=== PATIENT | female | born 1940 | race Caucasian/White ===

== ENCOUNTER 2016-10-17 07:53 | Day surgery (SDC) | payer MEDICARE ==
[2016-10-17] MEDS ORDERED: LACTATED RINGERS 1,000 ML IV ONE ×2 (08:03)
[2016-10-17] MEDS ORDERED: MIDAZOLAM 2 MG/2 ML VIAL IVP ONE (09:20)
[2016-10-17] MEDS ORDERED: fentaNYL 100 MCG/2 ML VIAL IVP ONE (09:20)
--- NOTE | 2016-10-17 10:28 | PROCEDURE REPORT ---
DATE OF PROCEDURE: 10/17/2016 00:00:00 PROCEDURE: Colonoscopy. ENDOSCOPIST: Juan F Russ MD. PRIMARY CARE: Carolyn Suresh MD. INDICATION: History of colon polyps. PREMEDICATION: Fentanyl 100 mcg, Versed 3 mg IV titration. TOTAL SEDATION TIME: 40 minutes. After informed consent was obtained, the patient was placed in the left lateral decubitus position. T he video colonoscope was introduced into the rectum and slowly advanced to the cecum. Preparation was good. On slow withdrawal, the mucosa was carefully examined. The scope was removed. The patient tole rated the procedure well. BLOOD LOSS: Minimal. COMPLICATIONS: None. FINDINGS 1. Moderate sigmoid diverticulosis. 2. A 5 mm polyp at the hepatic flexure, cold snare to remove. 3. A 10 mm very flat polyp with a mucus cap at the hepatic flexure, 10-12 mm in size. This was taken off by endoscopic mucosal resection. The limits were identified. It was injected with 1 mL of saline and using a hot snare, removed completely. 4. A 12 mm pedunculated polyp in the mid transverse colon, hot snare removed. 5. A 10 mm pedunculated polyp in the transverse colon. This was hot snared, though cautery was incomp lete and there was minimal bleeding from the stalk. The stalk was grabbed again with the snare, caute rized, but not cut through and through. Bleeding was controlled. This polyp was placed in the same faustina ttle as the transverse colon bottle. ASSESSMENT 1. Two polyps at hepatic flexure removed as above. 2. Two transverse colon polyps placed in the same bottle removed as above. We will follow up with pathology, but given the size and number of the polyps, she probably should solano ve 1 additional colonoscopy in 3 years. JOB #: [id number] EXT JOB #:[id number]
[2016-10-17 12:48] VITALS: BP 121/63
== END 2016-10-17 07:54 | disposition home or self-care (01) ==
LOC: SDS 07:53
PROVIDERS: ATTEND Internal Medicine Gastroenterology
PROC: 0DBL8ZX Excision of Transverse Colon, Via Natural or Artificial Opening Endoscopic, Diagnostic (ICD-10-PCS; 2016-10-17)
PROC: 0DBK8ZX Excision of Ascending Colon, Via Natural or Artificial Opening Endoscopic, Diagnostic (ICD-10-PCS; principal; 2016-10-17 09:00)
DX: K63.5 Polyp of colon (principal); D12.3 Benign neoplasm of transverse colon; K57.30 Diverticulosis of large intestine without perforation or abscess without bleeding; J45.909 Unspecified asthma, uncomplicated; Z88.0 Allergy status to penicillin; Z88.2 Allergy status to sulfonamides
CPT/HCPCS: 45385; J7120

== ENCOUNTER 2016-10-22 11:38 | Outpatient (CLI) | payer MEDICARE ==
--- NOTE | 2016-10-23 16:52 | Mammography Report ---
DIGITAL SCREENING MAMMOGRAM: 10/22/2016 CLINICAL INDICATION: A 76-year-old nulliparous patient with family history of breast cancer, history of benign left breast biopsy for screening. COMPARISON: 10/2015, 09/2014, 11/2012, 11/2011, 11/2010, 10/2009 TECHNIQUE: Routine CC and MLO projections were obtained of the breasts. FINDINGS: The breasts again demonstrate heterogeneously dense fibroglandular parenchyma. Postoperat siddhartha changes in the left breast are stable. Coarse and punctate, typically benign calcifications are present. No suspicious masses, clustered microcalcifications, or regions of architectural distortion are identified. IMPRESSION: BENIGN FINDINGS. RECOMMENDATION: Routine annual screening unless otherwise clinically indicated. BIRADS CATEGORY 2 - BENIGN FINDINGS. STANDARD QUALIFYING STATEMENTS 1. This examination was reviewed with the aid of Computer-Aided Detection (CAD). 2. A negative or benign imaging report should not delay biopsy if clinically suspicious findings are present. Consider surgical consultation if warranted. More than 5% of cancers are not identified by i maging. 3. Dense breasts may obscure an underlying neoplasm. JOB #: [id number] EXT JOB #:[id number]
== END 2016-10-22 11:39 | disposition home or self-care (01) ==
LOC: DI 11:38
PROVIDERS: ATTEND Internal Medicine
DX: Z12.31 Encounter for screening mammogram for malignant neoplasm of breast (principal); Z80.3 Family history of malignant neoplasm of breast
CPT/HCPCS: 77067

== ENCOUNTER 2017-10-23 10:09 | Outpatient (CLI) | payer MEDICARE ==
--- NOTE | 2017-10-24 12:12 | Mammography Report ---
Procedure Date: 10/23/2017 Accession Number: [id number] / [id number] Procedure: MGN - Screening Mammo Dig Bilat CPT Code: FULL RESULT: EXAM: Screening Mammo Dig Bilat DATE: 10/23/2017 10:30 AM CLINICAL HISTORY: 77 year-old nulliparous female with history of left breast surgery with benign pathology and family history of breast cancer in the mother at age 59. TECHNIQUE: Bilateral CC and MLO views were obtained. COMPARISON: 10/22/2016, 11/04/2015, 10/06/2014, 11/18/2012. FINDINGS: The breasts demonstrate heterogeneously dense fibroglandular parenchyma bilaterally. Postsurgical changes in the left breast are again seen. The right breast contains coarse typically benign calcifications. No suspicious masses, clustered microcalcifications, or regions of architectural distortion are identified. IMPRESSION: Benign findings RECOMMENDATION: Routine annual screening unless otherwise clinically indicated. BIRADS CATEGORY 2: Benign findings STANDARD QUALIFYING STATEMENTS: 1. This examination was reviewed with the aid of Computer-Aided Detection (CAD). 2. A negative or benign imaging report should not delay biopsy if clinically suspicious findings are present. Consider surgical consultation if warrented. More than 5% of cancers are not identified by imaging. 3. Dense breasts may obscure an underlying neoplasm.
== END 2017-10-23 10:10 | disposition home or self-care (01) ==
LOC: DI.N 10:09
PROVIDERS: ATTEND Internal Medicine
DX: Z12.31 Encounter for screening mammogram for malignant neoplasm of breast (principal); Z80.3 Family history of malignant neoplasm of breast
CPT/HCPCS: 77067

== ENCOUNTER 2018-11-07 19:24 | Emergency (ER) | payer MEDICARE ==
[2018-11-07 19:57] LABS: BILIRUBIN,URINE NEGATIVE (NEGATIVE); GLUCOSE, URINE (UA) NEGATIVE (NEGATIVE); KETONES,URINE (UA) NEGATIVE (NEGATIVE); LEUKOCYTE ESTERASE, URINE NEGATIVE (NEGATIVE); NITRITE,URINE NEGATIVE (NEGATIVE); OCCULT BLOOD,URINE NEGATIVE (NEGATIVE); PROTEIN,URINE NEGATIVE (NEGATIVE); UROBILINOGEN,URINE 0.2 (NORMAL) E.U./dL (NORMAL)
[2018-11-07 19:58] LABS: CLARITY,URINE CLEAR (CLEAR)
[2018-11-07 19:58] LABS: BASOPHILS % (AUTO) 0.4 %; EOSINOPHILS # (AUTO) 0.2 10^3/uL (0.0-0.7); EOSINOPHILS % (AUTO) 3.5 %; HGB - HEMOGLOBIN 13.8 g/dL (12.0-16.0); LYMPHOCYTES # (AUTO) 1.6 10^3/uL (1.5-3.5); LYMPHOCYTES % (AUTO) 30.2 %; MEAN CORPUSCULAR HEMOGLOBIN 30.9 pg (27.0-31.0); MEAN CORPUSCULAR HGB CONC 31.4 g/dL (32.0-36.0); MEAN CORPUSCULAR VOLUME 98.2 fL (81.0-99.0); MEAN PLATELET VOLUME 10.6 fL (7.9-10.8); MONOCYTES # (AUTO) 0.5 10^3/uL (0.0-1.0); MONOCYTES % (AUTO) 8.7 %; NEUTROPHILS # (AUTO) 3.1 10^3/uL (1.5-6.6); PLT - PLATELET COUNT 180 10^3/uL (130-450); RED BLOOD COUNT 4.47 10^6/uL (4.20-5.40); WHITE BLOOD COUNT 5.4 x10^3/uL (4.8-10.8)
[2018-11-07 20:12] LABS: ALBUMIN/GLOBULIN RATIO 1.6 (1.0-2.2); BILIRUBIN,TOTAL 0.4 mg/dL (0.2-1.0); CALCIUM 9.2 mg/dL (8.5-10.3); CREATININE 0.5 mg/dL (0.4-1.0); TOTAL PROTEIN 6.5 g/dL (6.7-8.2)
--- NOTE | 2018-11-07 21:01 | ED Physician Documentation ---
PD HPI ABD PAIN - Stated complaint Stated Complaint: R SIDE PX - Chief complaint Chief Complaint: Abd Pain - History obtained from History obtained from: Patient - History of Present Illness Timing - onset: Enter time (18:00), Today Timing - details: Abrupt onset Pain level max: 6 Pain level now: 0 Quality: Pain Location: RUQ Improved by: Other (nothing) Worsened by: Other (no exacerbating factors) Associated symptoms: No: Fever, Nausea, Vomiting, Diarrhea, Constipation Similar symptoms before: Has not had sx before - Additional information Additional information: sudden onset RUQ pain when sitting down to eat dinner. pain was severe enough to prompt her to leave and drive to ED although pain then became so intense that she had to loin puller and then let s.o. drive. by the time she got to ED, the symptoms suddenly and completely resolved and she is asymptomatic on this evaluation. no h/o similar symptoms Review of Systems Constitutional: reports: Reviewed and negative Cardiac: reports: Reviewed and negative Respiratory: reports: Reviewed and negative GI: reports: Abdominal Pain. denies: Nausea, Vomiting, Constipation, Diarrhea : denies: Dysuria, Frequency Skin: denies: Rash Musculoskeletal: denies: Back pain PD PAST MEDICAL HISTORY - Past Medical History Past Medical History: Yes Cardiovascular: None Respiratory: Asthma, Pneumonia Endocrine/Autoimmune: None GI: None : None HEENT: None Psych: None Musculoskeletal: Osteoarthritis Derm: None - Past Surgical History Past Surgical History: Yes General: Colonoscopy, Other Ortho: Knee replacement HEENT: Cataracts, Tonsil/Adenoidectomy - Present Medications Home Medications: Ambulatory Orders Medication Instructions Recorded Confirmed Beclomethasone 80 Mcg [Qvar 80] 1 puffs INH BID 09/27/14 10/17/16 Valacyclovir HCl [Valtrex] 500 mg PO ONCE 09/27/14 10/17/16 Triamcinolone Acetonide [Nasacort] 10.8 ml NS BID 11/07/18 11/07/18 - Allergies Allergies/Adverse Reactions: Allergies Allergy/AdvReac Type Severity Reaction Status Date / Time penicillin * [penicillin] Allergy Unknown Verified 09/27/14 12:46 sulfamethoxazole Allergy Unknown Verified 09/27/14 12:46 [From Bactrim] trimethoprim [From Bactrim] Allergy Unknown Verified 09/27/14 12:46 - Social History Does the pt smoke?: No Smoking Status: Never smoker Does the pt drink ETOH?: Yes Does the pt have substance abuse?: No PD ED PE NORMAL - Vitals Vital signs reviewed: Yes - General General: Alert and oriented X 3, No acute distress, Well developed/nourished - Cardiac Cardiac: RRR, No murmur, No gallop, No rub - Respiratory Respiratory: No respiratory distress, Clear bilaterally - Abdomen Abdomen: Normal bowel sounds, Soft, Non tender, Non distended, No organomegaly - Back Back: No CVA TTP - Derm Derm: Normal color, Warm and dry, No rash - Extremities Extremities: No edema Results - Vitals Vitals: Vital Signs - 24 hr 11/07/18 11/07/18 19:27 22:21 Temperature 36.6 C Heart Rate 73 67 Respiratory 14 16 Rate Blood Pressure 141/89 H 143/96 H O2 Saturation 98 98 Oxygen O2 Source Room air - EKG (time done) No standard instances Rate: Rate (enter#) (61) Rhythm: NSR [place]: Normal Intervals: Normal GA QRS: Normal Ischemia: Normal ST segments Computer interpretation: Disagree with computer (no ST elevation) - Labs Labs: Laboratory Tests 11/07/18 11/07/18 11/07/18 19:45 19:54 19:54 WBC 5.4 RBC 4.47 Hgb 13.8 Hct 43.9 MCV 98.2 MCH 30.9 MCHC 31.4 L RDW 13.0 Plt Count 180 MPV 10.6 Neut # (Auto) 3.1 Lymph # (Auto) 1.6 [place] # (Auto) 0.5 Eos # (Auto) 0.2 Baso # (Auto) 0.0 Absolute Nucleated RBC 0.00 Nucleated RBC % 0.0 Sodium 140 Potassium 4.3 Chloride 103 Carbon Dioxide 27 Anion Gap 10.0 BUN 21 H Creatinine 0.5 Estimated GFR (MDRD) 119 Glucose 116 H Calcium 9.2 Total Bilirubin 0.4 AST 23 ALT 19 Alkaline Phosphatase 52 Total Protein 6.5 L Albumin 4.0 Globulin 2.5 Albumin/Globulin Ratio 1.6 Lipase 48 Urine Color YELLOW Urine Clarity CLEAR Urine pH 6.0 Ur Specific [place] 1.015 Urine Protein NEGATIVE Urine Glucose (UA) NEGATIVE Urine Ketones NEGATIVE Urine Occult Blood NEGATIVE Urine Nitrite NEGATIVE Urine Bilirubin NEGATIVE Urine Urobilinogen 0.2 (NORMAL) Ur Leukocyte Esterase NEGATIVE Ur Microscopic Review NOT INDICATED Urine Culture Comments NOT INDICATED - Rads (name of study) CT A/P Radiology: Prelim report reviewed, See rad report PD MEDICAL DECISION MAKING - ED course Complexity details: reviewed results, re-evaluated patient, considered differential, d/w patient, d/w family Departure - Departure Disposition: 01 Home, Self Care Clinical Impression: Abdominal pain Condition: Good Instructions: ED Abdominal Pain Unkn Cause Follow-Up: Carolyn Suresh MD [Primary Care Provider] - Discharge Date/Time: 11/07/18 22:49
[2018-11-07] MEDS ORDERED: IOVERSOL 320 100 ML VIAL IVP ONE ×2 (21:30→21:51)
--- NOTE | 2018-11-07 22:15 | CT Report ---
Reason: abd. pain, possible liver mass on bedside US Procedure Date: 11/07/2018 Accession Number: [id number] / [id number] Procedure: CT - Abdomen/Pelvis W CPT Code: FULL RESULT: EXAM: CT ABDOMEN AND PELVIS EXAM DATE: 11/07/2018 09:46 PM. CLINICAL HISTORY: Abdominal pain, possible liver mass on bedside ultrasound. COMPARISONS: None. TECHNIQUE: Routine helical CT imaging was performed through the abdomen and pelvis. IV contrast: 100 mL OPTI 320. Enteric contrast: No. Reconstructions: Coronal and sagittal. In accordance with CT protocol optimization, one or more of the following dose reduction techniques were utilized for this exam: automated exposure control, adjustment of mA and/or KV based on patient size, or use of iterative reconstructive technique. FINDINGS: Lung Bases: Unremarkable. Liver: There is a unilocular 7 cm right hepatic lobe cyst with mild dilatation of several adjacent bile ducts. No solid or enhancing mass seen. There is a smaller 2 cm simple left hepatic lobe cyst. Gallbladder/Bile Ducts: Unremarkable. Spleen: Normal. Pancreas: Normal. Adrenal Glands: Normal. Kidneys: Normal. No masses or hydronephrosis. Peritoneal Cavity/Bowel: There is an above-average volume of stool throughout the colon. No small bowel obstruction. No free air or fluid collections. No acute mesenteric inflammatory changes. No evidence of appendicitis. Pelvic Organs: Normal. The bladder and visualized pelvic organs are within normal limits. Vasculature: Atherosclerotic aorta. No aneurysms. Bones: Diffuse lumbar spine and bilateral hip degenerative changes. Other: None. IMPRESSION: 1. There is a 7 cm unilocular right hepatic lobe cyst with several adjacent dilated intrahepatic bile ducts. No suspicious, solid or enhancing mass seen. 2. Increased large bowel stool burden suggesting constipation. 3. No acute inflammatory process within the abdomen and pelvis. RADIA
[2018-11-07 22:22] VITALS: BP 143/96
== END 2018-11-07 22:49 | disposition home or self-care (01) ==
LOC: ED 19:24
DX: R10.11 Right upper quadrant pain (principal)
CPT/HCPCS: 36415; 74177; 80053; 81003; 83690; 85025; 93005; 99284; Q9967; 81001; 87086

== ENCOUNTER 2018-12-31 15:41 | Outpatient (CLI) | payer MEDICARE ==
--- NOTE | 2019-01-02 09:32 | Mammography Report ---
Reason: SCREENING MAMMO Procedure Date: 12/31/2018 Accession Number: [id number] / [id number] Procedure: LEONORA - Screening Mammo w/Flip CPT Code: FULL RESULT: EXAM: Screening Mammo w/Flip DATE: 12/31/2018 4:17 PM CLINICAL HISTORY: Screening encounter. History of nulliparity. History of benign excisional left breast biopsy. TECHNIQUE: (B) - Bilateral CC and MLO views were obtained. Left laterally exaggerated CC views obtained. COMPARISON: 10/23/2017 through 11/07/2009. PARENCHYMAL PATTERN: (D) - The breast(s) demonstrate(s) heterogeneously dense fibroglandular parenchyma. FINDINGS: Postsurgical changes in the left breast are stable. There are coarse typically benign calcifications. There are no suspicious masses, calcifications, or areas of distortion. IMPRESSION: Benign findings. BI-RADS category 2. RECOMMENDATION: (ANNUAL) - Recommend routine annual screening mammography. BI-RADS CATEGORY: (2) - Benign Findings. STANDARD QUALIFYING STATEMENTS: 1. This examination was not reviewed with the aid of Computer-Aided Detection (CAD). 2. A negative or benign imaging report should not preclude biopsy if clinically suspicious findings are present. 3. Dense breasts may obscure an underlying neoplasm. 4. This examination was reviewed with the aid of 3D breast imaging (tomosynthesis).
== END 2018-12-31 15:42 | disposition home or self-care (01) ==
LOC: DI 15:41
DX: Z12.31 Encounter for screening mammogram for malignant neoplasm of breast (principal)
CPT/HCPCS: 77063; 77067

== ENCOUNTER 2019-09-13 09:06 | Outpatient (CLI) | payer MEDICARE ==
--- NOTE | 2019-09-13 13:17 | Ultrasound Report ---
PROCEDURE: Abdomen Limited INDICATIONS: LIVER CYSTS TECHNIQUE: Real-time focused scanning was performed of the abdomen, with image documentation. COMPARISON: CT abdomen and pelvis with contrast dated 11/07/2018 FINDINGS: Again noted is a right lobe liver cyst. On the previous CT it measured 7.0 cm. On the curr ent ultrasound and measures 6.4 x 6.1 x 6.1 cm. Also noted is the presence of a left lobe liver cyst which measures 2.6 x 2.1 x 2.4 cm. An additional left lobe liver cyst measures 1.0 cm. No dilated ducts are identified. The common bile duct measures 3 mm. Gallbladder is unremarkable. No stones or gallbladder wall thickening or pain on examination. Visualized portions of the pancreas are unremarkable. No suspicious solid liver masses. IMPRESSION: 1. The right lobe liver cyst appears to be slightly smaller than previously. It is a benign lesion. N o dilated ducts. Reviewed by: Juan Quiñones MD on 09/13/2019 12:15 PM MIKE Approved by: Juan Quiñones MD on 09/13/2019 12:15 PM MIKE Station ID: [id number]
== END 2019-09-13 09:07 | disposition home or self-care (01) ==
LOC: DI 09:06
PROVIDERS: ATTEND Internal Medicine
DX: Q44.6 Cystic disease of liver (principal)
CPT/HCPCS: 76705

== ENCOUNTER 2020-01-08 10:50 | Outpatient (CLI) | payer MEDICARE ==
--- NOTE | 2020-01-11 16:24 | Mammography Report ---
BILATERAL DIGITAL SCREENING MAMMOGRAM 3D/2D: 01/08/2020 CLINICAL: Family history of breast cancer. Routine screening. Comparison is made to exams dated: 12/31/2018 mammogram, 10/23/2017 mammogram, 10/22/2016 mammogram, 10/16 mammogram, 10/06/2014 mammogram, and 11/18/2012 mammogram - [facility]. The ti ssue of both breasts is heterogeneously dense. This may lower the sensitivity of mammography. No significant masses, calcifications, or other findings are seen in either breast. There has been no significant interval change. IMPRESSION: NEGATIVE There is no mammographic evidence of malignancy. A 1 year screening mammogram is recommended. This exam was interpreted at Station ID: [id number]. NOTE: For mammograms, a report in lay terms will be sent to the patient. Approximately 15% of breast malignancies will not be visualized mammographically. In the management of a palpable breast mass, a negative mammogram must not discourage biopsy of a clinically suspicious lesion. Electronically Signed By: Marlene corbett/timoteo:01/08/2020 13:04:28 ACR BI-RADS Category 1: Negative 3341F PARENCHYMAL PATTERN: (D) - The breast(s) demonstrate(s) heterogeneously dense fibroglandular sadi alcantara. BI-RADS CATEGORY: (1) - 1 RECOMMENDATION: (ANNUAL) - Recommend routine annual screening mammography. [id number] 1 year screening LATERALITY: (B)
== END 2020-01-08 10:51 | disposition home or self-care (01) ==
LOC: DI.N 10:50
DX: Z12.31 Encounter for screening mammogram for malignant neoplasm of breast (principal); Z80.3 Family history of malignant neoplasm of breast
CPT/HCPCS: 77063; 77067

== ENCOUNTER 2020-10-11 11:49 | Outpatient (CLI) | payer MEDICARE ==
[2020-10-11 12:20] LABS: BASOPHILS % (AUTO) 0.5 %; EOSINOPHILS # (AUTO) 0.1 10^3/uL (0.0-0.7); EOSINOPHILS % (AUTO) 1.9 %; HGB - HEMOGLOBIN 13.2 g/dL (12.0-16.0); LYMPHOCYTES # (AUTO) 1.2 10^3/uL (1.5-3.5); LYMPHOCYTES % (AUTO) 28.2 %; MEAN CORPUSCULAR HEMOGLOBIN 29.9 pg (27.0-31.0); MEAN CORPUSCULAR HGB CONC 30.7 g/dL (32.0-36.0); MEAN CORPUSCULAR VOLUME 97.5 fL (81.0-99.0); MEAN PLATELET VOLUME 11.2 fL (7.9-10.8); MONOCYTES # (AUTO) 0.3 10^3/uL (0.0-1.0); NEUTROPHILS # (AUTO) 2.5 10^3/uL (1.5-6.6); NEUTROPHILS % (AUTO) 61.2 %; PLT - PLATELET COUNT 165 10^3/uL (130-450); RED BLOOD COUNT 4.41 10^6/uL (4.20-5.40); RED CELL DISTRIBUTION WIDTH 13.1 % (12.0-15.0); WHITE BLOOD COUNT 4.1 x10^3/uL (4.8-10.8)
[2020-10-11 12:36] LABS: ALBUMIN 4.1 g/dL (3.2-5.5); ALKALINE PHOSPHATASE 57 IU/L (42-121); ALT ALANINE AMINOTRANSFERASE 20 IU/L (10-60); AST ASPARTATE AMINOTRANSFERASE 22 IU/L (10-42); BUN - BLOOD UREA NITROGEN 13 mg/dL (6-20); CARBON DIOXIDE - CO2 26 mmol/L (21-32); CHLORIDE 102 mmol/L (101-111); CHOL/HDL RATIO 2.6 (<4.4); CHOLESTEROL 218 mg/dL; CREATININE 0.5 mg/dL (0.4-1.0); GFR - MDRD 118 (>89); GLUCOSE 103 mg/dL (70-100); HDL CHOLESTEROL 84 mg/dL; LDL CHOLESTEROL,CALCULATED 124 mg/dL; LDL/HDL RATIO 1.5 (<4.4); MAGNESIUM 2.3 mg/dL (1.7-2.8); SODIUM 138 mmol/L (135-145); TOTAL PROTEIN 6.2 g/dL (6.7-8.2); TRIGLYCERIDES 50 mg/dL; VLDL CHOLESTEROL 10 mg/dL
== END 2020-10-11 11:50 | disposition home or self-care (01) ==
LOC: LAB 11:49
PROVIDERS: ATTEND Internal Medicine
DX: C44.91 Basal cell carcinoma of skin, unspecified (principal); Z13.6 Encounter for screening for cardiovascular disorders; Z79.899 Other long term (current) drug therapy; J45.909 Unspecified asthma, uncomplicated; I49.9 Cardiac arrhythmia, unspecified
CPT/HCPCS: 36415; 80053; 80061; 82306; 83721; 83735; 84443; 85025

== ENCOUNTER 2021-01-09 13:01 | Outpatient (CLI) | payer MEDICARE ==
--- NOTE | 2021-01-10 08:02 | Mammography Report ---
BILATERAL DIGITAL SCREENING MAMMOGRAM 3D/2D: 01/09/2021 CLINICAL: Family history of breast cancer. Routine screening. Comparison is made to exams dated: 01/08/2020 mammogram, 12/31/2018 mammogram, 10/23/2017 mammogram, mammogram, 11/04/2015 mammogram, and 10/06/2014 mammogram - [facility]. The tissue of both breasts is heterogeneously dense. This may lower the sensitivity of mammography. There are benign post operative findings in the left breast. No significant masses, calcifications, or other findings are seen in either breast. There has been no significant interval change. IMPRESSION: BENIGN There is no mammographic evidence of malignancy. A 1 year screening mammogram is recommended. This exam was interpreted at Station ID: [id number]. NOTE: For mammograms, a report in lay terms will be sent to the patient. Approximately 15% of breast malignancies will not be visualized mammographically. In the management of a palpable breast mass, a negative mammogram must not discourage biopsy of a clinically suspicious lesion. Electronically Signed By: Milagros hopkins/timoteo:01/09/2021 14:06:54 ACR BI-RADS Category 2: Benign Finding(s) 3342F PARENCHYMAL PATTERN: (D) - The breast(s) demonstrate(s) heterogeneously dense fibroglandular sadi alcantara. BI-RADS CATEGORY: (2) - 2 RECOMMENDATION: (ANNUAL) - Recommend routine annual screening mammography. [id number] 1 year screening LATERALITY: (B)
== END 2021-01-09 13:02 | disposition home or self-care (01) ==
LOC: DI.N 13:01
DX: Z12.31 Encounter for screening mammogram for malignant neoplasm of breast (principal); Z80.3 Family history of malignant neoplasm of breast

== ENCOUNTER 2021-11-22 12:32 | Outpatient (CLI) | payer MEDICARE ==
--- NOTE | 2021-11-22 17:26 | DEXA Report ---
PROCEDURE: Dexa Spine and/or Hip INDICATIONS: SCREENING DEXA TECHNIQUE: Dual energy x-ray absorptiometry (DXA) was performed on a [employer] System. Regions measur ed are the AP Spine, femoral neck, and if needed forearm. COMPARISON: None. FINDINGS: Lumbar Spine: Bone Mineral Density 1.1-4 g/cm/cm,T score -0.5, normal Left Hip: Bone Mineral Density 0.729 g/cm/cm,T score -2.2, osteopenia Left Femoral Neck: Bone Mineral Density 0.98 g/cm/cm, T score -0.4, normal (T score greater or equal to -1.0: NORMAL) (T score from -1.1 to -2.4: OSTEOPENIA) (T score less than or equal to -2.5 to: OSTEOPOROSIS) Impression: Osteopenia Patients with diagnosis of osteoporosis or osteopenia should have regular bone mineral density assess ment. For those eligible for Medicare, routine testing is allowed once every 2 years. Testing frequ ency can be increased for patients who have rapidly progressing disease or for those who are receivin g medical therapy to restore bone mass. Reviewed by: Manuel Castro MD on 11/22/2021 4:25 PM MIKE Approved by: Manuel Castro MD on 11/22/2021 4:25 PM AKARNOLD Station ID: [id number]
== END 2021-11-22 12:33 | disposition home or self-care (01) ==
LOC: DI 12:32
PROVIDERS: ATTEND Internal Medicine
DX: Z13.820 Encounter for screening for osteoporosis (principal); M85.88 Other specified disorders of bone density and structure, other site

== ENCOUNTER 2022-01-12 15:26 | Outpatient (CLI) | payer MEDICARE ==
--- NOTE | 2022-01-15 09:38 | Mammography Report ---
BILATERAL DIGITAL SCREENING MAMMOGRAM 3D/2D: 01/12/2022 CLINICAL: Routine screening. Comparison is made to exams dated: 01/09/2021 mammogram, 01/08/2020 mammogram, 12/31/2018 mammogram, 10/23/2017 mammogram, and 10/22/2016 mammogram - [facility]. Both breasts are heterogeneously dense, which may obscure small masses (category c / 51-75% glandular tissue). There are benign post operative findings in the left breast. No significant masses, calcifications, or other findings are seen in either breast. There has been no significant interval change. IMPRESSION: BENIGN There is no mammographic evidence of malignancy. A 1 year screening mammogram is recommended. Based on the Tyrer Cuzick model (a risk assessment model) the patients lifetime risk is 1.5% and her 10 year risk is 0.0%. According to the ACR, ACS, and NCCN guidelines, an annual breast MRI exam ian g with mammogram is recommended if the patients lifetime risk is 20% or greater. This exam was interpreted at Station ID: [id number]. NOTE: For mammograms, a report in lay terms will be sent to the patient. Approximately 15% of breast malignancies will not be visualized mammographically. In the management of a palpable breast mass, a negative mammogram must not discourage biopsy of a clinically suspicious lesion. Electronically Signed By: Marlene corbett/timoteo:01/12/2022 16:51:19 ACR BI-RADS Category 2: Benign Finding(s) 3342F PARENCHYMAL PATTERN: (D) - The breast(s) demonstrate(s) heterogeneously dense fibroglandular sadi alcantara. BI-RADS CATEGORY: (2) - 2 RECOMMENDATION: (ANNUAL) - Recommend routine annual screening mammography. [id number] 1 year screening LATERALITY: (B)
== END 2022-01-12 15:27 | disposition home or self-care (01) ==
LOC: DI 15:26
DX: Z12.31 Encounter for screening mammogram for malignant neoplasm of breast (principal)

== ENCOUNTER 2022-06-27 09:10 | Outpatient (CLI) | payer MEDICARE | END 2022-06-27 09:11 | disposition EMS.NT | LOC: EMS 09:10 | DX: S81.812A Laceration without foreign body, left lower leg, initial encounter (principal); X58.XXXA Exposure to other specified factors, initial encounter; Y92.000 Kitchen of unspecified non-institutional (private) residence as the place of occurrence of the external cause ==

== ENCOUNTER 2022-06-27 14:19 | Emergency (ER) | payer MEDICARE ==
[2022-06-27 14:31] VITALS: BP 136/67
[2022-06-27] MEDS ORDERED: TETANUS/DIPHTHERIA/PERTUSSIS 0.5 ML SYRINGE IM ONE (14:43)
[2022-06-27] MEDS ORDERED: LIDOCAINE-EPINEPH-TETRACAINE 3 ML SYRINGE TOP STA (14:43)
--- NOTE | 2022-06-27 14:43 | ED Physician Documentation ---
PD HPI LOWER EXT INJURY - Stated complaint Stated Complaint: FALL/LT LEG LAC - Chief complaint Chief Complaint: Laceration - History obtained from History obtained from: Family - Additional information Additional information: 82-year-old woman sustained a skin tear from her walker at home a couple of hours ago on the left leg. No other injuries. Note made that she is on clindamycin for about 24 hours now for cellulitis on that leg. Tetanus is not up-to-date. PD PAST MEDICAL HISTORY - Past Medical History Cardiovascular: None Respiratory: Asthma Endocrine/Autoimmune: None GI: Colon polyps : None HEENT: None Psych: None Musculoskeletal: Rheumatoid arthritis Derm: None - Past Surgical History Past Surgical History: Yes General: Other Ortho: Knee replacement HEENT: Tonsil/Adenoidectomy - Present Medications Home Medications: Ambulatory Orders Medication Instructions Recorded Confirmed Beclomethasone 80 Mcg [Qvar 80] 1 puffs INH BID 09/27/14 10/17/16 Triamcinolone Acetonide [Nasacort] 10.8 ml NS BID 11/07/18 11/07/18 - Allergies Allergies/Adverse Reactions: Allergies Allergy/AdvReac Type Severity Reaction Status Date / Time penicillin * [penicillin] Allergy Unknown Verified 06/27/22 14:31 sulfamethoxazole Allergy Unknown Verified 06/27/22 14:31 [From Bactrim] trimethoprim [From Bactrim] Allergy Unknown Verified 06/27/22 14:31 - Social History Does the pt smoke?: No Smoking Status: Never smoker Does the pt drink ETOH?: Yes Does the pt have substance abuse?: No PD ED PE NORMAL - Vitals Vital signs reviewed: Yes - General General: Alert and oriented X 3, No acute distress - Extremities Extremities: Other (There is a T-shaped skin tear to the mid anterior left sharma measuring about 8 cm across and 5 cm vertically for a total of 13 cm. There is underlying swelling.) - Neuro Neuro: Alert and oriented X 3, Normal speech Results - Vitals Vitals: Vital Signs - 24 hr 06/27/22 14:27 Temperature 36.7 C Heart Rate 92 Respiratory 16 Rate Blood Pressure 136/67 H O2 Saturation 99 Oxygen O2 Source Room air Procedures - Laceration (location) LLE Length in cm: 8 Wound type: Irregular, Flap, Superficial Neurovascular status: Sensory intact, Motor intact Anesthesia: LET Wound preparation: Hibiclens, Irrigated copiously NS Skin layer closure: Dermabond, Steri strips Other: Patient tolerated well, No complications, Neurovascular intact, Tetanus booster given PD Medical Decision Making - ED course ED course: 82-year-old woman with a quite large but very shallow skin tear on the left leg with underlying edema. It was thoroughly irrigated and cleansed and then the flap edges were realigned after some local anesthetic with let gel. Then closed with Steri-Strips and Dermabond. Given the size of it I recommended she talk with Dr. Suresh about a referral to wound care. Departure - Departure Disposition: Home, Self Care Clinical Impression: Skin tear of lower leg without complication Qualifiers: Encounter type: initial encounter Laterality: left Qualified Code(s): S81.812A - Laceration without foreign body, left lower leg, initial encounter Condition: Good Record reviewed to determine appropriate education?: Yes Instructions: ED Laceration Ext Sutr Stap Tape Comments: Given the size of the skin tear, it would not be unreasonable to ask your primary care physician to put in a referral to the wound care clinic here to follow along and make sure it is healing well. Call your primary care office today or tomorrow to arrange. Return for new or worsening symptoms. Elevate is much as possible. Note for your records that you received a Tdap shot today. For wound care it is fine to wash with soap and water, then blot it dry. Then keep it covered with an absorbent dressing and a loose wrap. Elevate is much as possible.
--- OUTSIDE RECORDS SUMMARY | 2022-06-27 15:23 | EXTERNAL MEDICAL SUMMARY RPT | Continuity of Care Document ---
:1940 Author Organization [facility] Address [address] [place] [address] Phone Care Team Providers Name Role Phone Unavailable Unavailable Unavailable Emerson Almaraz Unavailable Unavailable Allergies and Intolerances date description facility type (no date) Penicillins [facility] (unknown) (no date) Sulfa (Sulfonamide Antibiotics) [facility] (unknown) (no date) sulfamethoxazole [facility] (unknown) (no date) trimethoprim [facility] (unknown) Encounters No information. Functional Status No information. Immunizations No information. Medications date description facility 2022-06-11 00:00 Triamcinolone Acetonide [facility] 2022-06-11 00:00 Beclomethasone Dipropionate [facility] Problems date description facility 2022-05-11 12:33 Urinary tract infection, site not speci [facility] 2022-05-11 12:33 Hyperglycemia, unspecified [facility] 2022-05-11 12:33 Encounter for preprocedural [facility] examination 2022-05-11 12:33 Encounter for other preprocedural exami [facility] 2022-05-11 12:50 Urinary tract infection, site not [facility] 2022-05-11 12:50 Hyperglycemia, unspecified [facility] 2022-05-11 12:50 Encounter for preprocedural [facility] examination 2022-05-11 12:50 [facility] 08:49 Unilateral primary osteoarthritis, [facility] 2022-06-19 09:11 Unilateral primary osteoarthritis, [facility] 2022-06-20 08:00 Unilateral primary osteoarthritis, [facility] 2022-06-20 09:49 Unilateral primary osteoarthritis, [facility] 2022-06-20 10:53 Unilateral primary osteoarthritis, [facility] 2022-06-20 12:53 Unilateral primary osteoarthritis, [facility] 2022-06-20 12:56 Unilateral primary osteoarthritis, [facility] 2022-06-25 15:03 Pain in left lower leg [facility] Procedures date description facility 2022-06-19 00:00 XR fluoro, less than 60 minutes [facility] 2022-06-19 00:00 Total Hip Arthroplasty/Anterior Approac h (Left) [facility] 2022-06-19 00:00 Unilateral x-ray of hip, two views, wit h x-ray [facility] of pelvis 2022-06-19 00:00 X-ray of pelvis and unilateral hip, fou r views [facility] Results/Labs test date author facility value unit interpret ation Result panel 1 (unknown) (no date[facility]) Result panel 2 (unknown) (no date) (unknown[facility]) Result panel 3 (unknown) (no date) (unknown[facility]) Result panel 4 (unknown) (no date) (unknown[facility]) Result panel 5 (unknown) (no date) (unknown[facility]) Result panel 6 (unknown) (no date) (unknown[facility]) Result panel 7 (unknown) (no date) (unknown[facility]) Result panel 8 (unknown) (no date) (unknown[facility]) Result panel 9 (unknown) (no date) (unknown[facility]) Result panel 10 (unknown) (no date) (unknown[facility]) Result panel 11 (unknown) (no date) (unknown[facility]) Result panel 12 (unknown) (no date) (unknown[facility]) Result panel 13 (unknown) (no date) (unknown[facility]) Result panel 14 (unknown) (no date) (unknown[facility]) Result panel 15 (unknown) (no date) (unknown[facility]) Result panel 16 (unknown) (no date) (unknown[facility]) Result panel 17 (unknown) (no date) (unknown[facility]) Result panel 18 (unknown) (no date) (unknown[facility]) Result panel 19 (unknown) (no date) (unknown[facility]) Result panel 20 (unknown) (no date) (unknown[facility]) Result panel 21 (unknown) (no date) (unknown[facility]) Result panel 22 (unknown) (no date) (unknown[facility]) Result panel 23 (unknown) (no date) (unknown[facility]) Result panel 24 (unknown) (no date) (unknown[facility]) Result panel 25 (unknown) (no date) (unknown[facility]) Result panel 26 (unknown) (no date) (unknown[facility]) Result panel 27 (unknown) (no date) (unknown[facility]) Result panel 28 (unknown) (no date) (unknown[facility]) Result panel 29 (unknown) (no date) (unknown[facility]) Result panel 30 (unknown) (no date) (unknown[facility]) Result panel 31 (unknown) (no date) (unknown[facility]) Result panel 32 (unknown) (no date) (unknown[facility]) Result panel 33 (unknown) (no date) (unknown[facility]) Result panel 34 (unknown) (no date) (unknown[facility]) Result panel 35 (unknown) (no date) (unknown[facility]) Result panel 36 (unknown) (no date) (unknown[facility]) Result panel 37 (unknown) (no date) (unknown[facility]) Result panel 38 (unknown) (no date) (unknown[facility]) Result panel 39 (unknown) (no date) (unknown[facility]) Result panel 40 (unknown) (no date) (unknown) [facility]) Result panel 41 (unknown) (no date) (unknown[facility]) Result panel 42 (unknown) (no date) (unknown[facility]) Result panel 43 (unknown) (no date) (unknown[facility]) Result panel 44 (unknown) (no date) (unknown[facility]) Result panel 45 (unknown) (no date) (unknown[facility]) Result panel 46 (unknown) (no date) (unknown[facility]) Result panel 47 (unknown) (no date) (unknown) [facility]) Result panel 48 (unknown) (no date) (unknown[facility]) Result panel 49 (unknown) (no date) (unknown) [facility]) Result panel 50 (unknown) (no date) (unknown[facility]) Result panel 51 (unknown) (no date) (unknown) [facility]) Result panel 52 (unknown) (no date) (unknown) [facility]) Result panel 53 (unknown) (no date) (unknown) [facility]) Result panel 54 (unknown) (no date) (unknown) [facility]) Result panel 55 (unknown) (no date) (unknown[facility]) Result panel 56 (unknown) (no date) (unknown[facility]) Result panel 57 (unknown) (no date) (unknown[facility]) Result panel 58 (unknown) (no date) (unknown[facility]) Result panel 59 (unknown) (no date) (unknown[facility]) Result panel 60 (unknown) (no date) (unknown[facility]) Result panel 61 (unknown) (no date) (unknown[facility]) Result panel 62 (unknown) (no date) (unknown) [facility]) Result panel 63 (unknown) (no date) (unknown[facility]) Result panel 64 (unknown) (no date) (unknown) [facility]) Result panel 65 (unknown) (no date) (unknown) [facility]) Result panel 66 (unknown) (no date) (unknown) [facility]) Result panel 67 (unknown) (no date) (unknown[facility]) Result panel 68 (unknown) (no date) (unknown) [facility]) Result panel 69 (unknown) (no date) (unknown[facility]) Result panel 70 (unknown) (no date) (unknown[facility]) Result panel 71 (unknown) (no date) (unknown) [facility]) Result panel 72 (unknown) (no date) (unknown) [facility]) Result panel 73 (unknown) (no date) (unknown) [facility]) Result panel 74 (unknown) (no date) (unknown) [facility]) Result panel 75 (unknown) (no date) (unknown) [facility]) Result panel 76 (unknown) (no date) (unknown[facility]) Result panel 77 (unknown) (no date) (unknown) [facility]) Result panel 78 (unknown) (no date) (unknown) [facility]) Result panel 79 (unknown) (no date) (unknown[facility]) Result panel 80 (unknown) (no date) (unknown[facility] Result panel 81 (unknown) (no date) (unknown) (unknown) 0 /ul (unkn own) (unknown) (no date) (unknown) (unknown) 0.7 % (unkn own) (unknown) (no date) (unknown) (unknown) 100 /ul (unkn own) (unknown) (no date) (unknown) (unknown) 12.9 g/dl (unkn own) (unknown) (no date) (unknown) (unknown) 13.7 % (unkn own) (unknown) (no date) (unknown) (unknown) 1400 /ul (unkn own) (unknown) (no date) (unknown) (unknown) 192 x10 3/ul (unkn own) (unknown) (no date) (unknown) (unknown) 2.0 % (unkn own) (unknown) (no date) (unknown) (unknown) 29.1 % (unkn own) (unknown) (no date) (unknown) (unknown) 29.6 pg (unkn own) (unknown) (no date) (unknown) (unknown) 2900 /ul (unkn own) (unknown) (no date) (unknown) (unknown) 32.2 % (unkn own) (unknown) (no date) (unknown) (unknown) 4.36 x10 6/ul (unkn own) (unknown) (no date) (unknown) (unknown) 4.9 x10 3/ul (unkn own) (unknown) (no date) (unknown) (unknown) 40.1 % (unkn own) (unknown) (no date) (unknown) (unknown) 400 /ul (unkn own) (unknown) (no date) (unknown) (unknown) 59.5 % (unkn own) (unknown) (no date) (unknown) (unknown) 8.7 % (unkn own) (unknown) (no date) (unknown) (unknown) 91.9 fl (unkn own) Result panel 82 (unknown) (no date) (unknown) (unknown) <=1.005 (units (unkn own) unknown) (unknown) (no date) (unknown) (unknown) 0.2 e.u./dl (unkn own) (unknown) (no date) (unknown) (unknown) 6.0 (units (unkn own) unknown) (unknown) (no date) (unknown) (unknown) CLEAR (units (unkn own) unknown) (unknown) (no date) (unknown) (unknown) NEGATIVE (units (unkn own) unknown) (unknown) (no date) (unknown) (unknown) NEGATIVE g/dl (unkn own) (unknown) (no date) (unknown) (unknown) YELLOW (units (unkn own) unknown) (unknown) (no date) (unknown) (unknown) YELLOW (units (unkn own) unknown) Result panel 83 (unknown) (no date) (unknown) (unknown) <=1.005 (units (unkn own) unknown) (unknown) (no date) (unknown) (unknown) 0.2 e.u./dl (unkn own) (unknown) (no date) (unknown) (unknown) 6.0 (units (unkn own) unknown) (unknown) (no date) (unknown) (unknown) CLEAR (units (unkn own) unknown) (unknown) (no date) (unknown) (unknown) Cult Not (units (unkn own) Indicated unknown) (unknown) (no date) (unknown) (unknown) Microscopic (units (u nknown) Normal unknown) (unknown) (no date) (unknown) (unknown) NEGATIVE (units (unkn own) unknown) (unknown) (no date) (unknown) (unknown) NEGATIVE g/dl (unkn own) (unknown) (no date) (unknown) (unknown) None Seen (units (unk nown) unknown) (unknown) (no date) (unknown) (unknown) None Seen (units (unk nown) unknown) (unknown) (no date) (unknown) (unknown) YELLOW (units (unkn own) unknown) (unknown) (no date) (unknown) (unknown) YELLOW (units (unkn own) unknown) Result panel 84 (unknown) (no date) (unknown) (unknown) 5.7 % (unkn own) (unknown) (no date) (unknown) (unknown) 5.7 % (unkn own) Result panel 85 (unknown) (no date) (unknown) (unknown) > 60 ml/min (unkn own) (unknown) (no date) (unknown) (unknown) > 60 ml/min (unkn own) (unknown) (no date) (unknown) (unknown) 0.47 mg/dl (unkn own) (unknown) (no date) (unknown) (unknown) 105 mmol/l (unkn own) (unknown) (no date) (unknown) (unknown) 140 mmol/l (unkn own) (unknown) (no date) (unknown) (unknown) 15 mg/dl (unkn own) (unknown) (no date) (unknown) (unknown) 26 mmol/l (unkn own) (unknown) (no date) (unknown) (unknown) 31.9 (units unknown) (unknown) (unknown) (no date) (unknown) (unknown) 5.0 mmol/l (unkn own) (unknown) (no date) (unknown) (unknown) 8.9 mg/dl (unkn own) (unknown) (no date) (unknown) (unknown) 81 mg/dl (unkn own) (unknown) (no date) (unknown) (unknown) 81 mg/dl (unkn own) Result panel 86 (unknown) (no date) (unknown) (unknown) Negative (units (unkn own) unknown) (unknown) (no date) (unknown) (unknown) Negative (units (unkn own) unknown) Result panel 87 (unknown) (no date) (unknown) (unknown) (no value) (units (un known) unknown) (unknown) (no date) (unknown) (unknown) 06/19/22 1039 (units (unknown) unknown) (unknown) (no date) (unknown) (unknown) [id number] (units (unkn own) unknown) (unknown) (no date) (unknown) (unknown) Age/Sex: 82 / (units (unknown) F unknown) (unknown) (no date) (unknown) (unknown) COVID-19 (units (unkn own) status: unknown) Negative (unknown) (no date) (unknown) (unknown) COVID-19 (units (unkn own) unknown) (unknown) (no date) (unknown) (unknown) Changes to (units (un known) H+P: No unknown) (unknown) (no date) (unknown) (unknown) : (units (unkn own) 1940 unknown) Acct:[id number] (unknown) (no date) (unknown) (unknown) Date of (units (unkn own) Service: unknown) 06/19/22 (unknown) (no date) (unknown) (unknown) History + (units (unk nown) Physical unknown) reviewed/Exam performed by Physician: Yes (unknown) (no date) (unknown) (unknown) Interval Note (units (unknown) unknown) (unknown) (no date) (unknown) (unknown) [facility] [address]) [place] [address] (unknown) (no date) (unknown) (unknown) Patient: (units (unkn own) Manny Magallanes unknown) MR#: [id number] (unknown) (no date) (unknown) (unknown) Pre-operative (units (unknown) Note unknown) (unknown) (no date) (unknown) (unknown) Provider: (units (unk nown) Zulema Grady unknown) (unknown) (no date) (unknown) (unknown) Signed (units (unkn own) By:<Electronic unknown) ally signed by Zulema Grady MD> Result panel 88 (unknown) (no (unknown) (unknown) (no value) (units (unk nown) date) unknown) (unknown) (no (unknown) (unknown) 06/19/22 (units (unkno wn) date) unknown) (unknown) (no (unknown) (unknown) 02/28/2022, (units (un known) date) 14:53. [facility] CR, [id number] W PEL IF PERFORMED, (unknown) (no (unknown) (unknown) [address] [place] (units (unknown) date) unknown) (unknown) (no (unknown) (unknown) 14:53. (units (unkno wn) date) unknown) (unknown) (no (unknown) (unknown) [id number] (units (unkno wn) date) unknown) (unknown) (no (unknown) (unknown) 06/19/2022, (units (unk nown) date) 12:03. unknown) (unknown) (no (unknown) (unknown) Accession (units (unkn own) date) Number: unknown) [id number] (unknown) (no (unknown) (unknown) Accession (units (unkn own) date) Number: unknown) [id number] (unknown) (no (unknown) (unknown) Age/Sex: 82 / F (units (unknown) date) Date of Service: unknown) (unknown) (no (unknown) (unknown) [place] (units ( unknown) date) [id number] unknown) (unknown) (no (unknown) (unknown) Approved by: (units (u nknown) date) Bartolo Vanegas unknown) Jonn on 06/19/2022 at 15:45 (unknown) (no (unknown) (unknown) Approved by: (units (u nknown) date) Bartolo Vanegas, unknown) Jonn on 06/20/2022 at 10:27 (unknown) (no (unknown) (unknown) Bones: Patient (units (unknown) date) is status post unknown) left total hip arthroplasty, with hardware (unknown) (no (unknown) (unknown) COMPARISON: (units (un known) date) [facility], unknown) CR, XR HIP W PEL IF DONE LT 2V, 06/19/2022, 13:14. (unknown) (no (unknown) (unknown) COMPARISON: (units (un known) date) [place] [facility] unknown) [facility], CR, XR PELVIS WITH LATERAL (unknown) (no (unknown) (unknown) : 1940 (units (unknown) date) Acct:[id number] unknown) (unknown) (no (unknown) (unknown) FINDINGS: (units (unkn own) date) unknown) (unknown) (no (unknown) (unknown) HIP LEFT, (units (unkn own) date) unknown) (unknown) (no (unknown) (unknown) IMPRESSION: (units (un known) date) Intraoperative unknown) images demonstrate a left total hip arthroplasty (unknown) (no (unknown) (unknown) IMPRESSION: (units (un known) date) Status post left unknown) total hip arthroplasty with expected postoperative (unknown) (no (unknown) (unknown) INDICATIONS: (units (u nknown) date) LEFT ANTERIOR HIP unknown) (unknown) (no (unknown) (unknown) [facility] (units (unknown) date) unknown) (unknown) (no (unknown) (unknown) Loc: 221-1 (units ( unknown) date) unknown) (unknown) (no (unknown) (unknown) [facility] (units (unkno wn) date) [facility] unknown) [place], CR, XR PELVIS WITH LATERAL HIP LEFT, 02/28/2022, (unknown) (no (unknown) (unknown) Ordering (units (unkno wn) date) Provider: unknown) Zulema Grady MD (unknown) (no (unknown) (unknown) PROCEDURE: (units (unk nown) date) [id number] W PEL unknown) IF PERFORMED (unknown) (no (unknown) (unknown) PROCEDURE: XR (units ( unknown) date) HIP W PEL IF DONE unknown) LT 2V (unknown) (no (unknown) (unknown) Patient: (units (unkno wn) date) Manny Magallanes unknown) MR#: [id number] (unknown) (no (unknown) (unknown) Procedure: XR (units ( unknown) date) hip w pel if done unknown) LT 2V (unknown) (no (unknown) (unknown) Procedure: XR (units ( unknown) date) hip w pel if done unknown) LT min 4V (unknown) (no (unknown) (unknown) Signed (units (unkno wn) date) unknown) (unknown) (no (unknown) (unknown) [place] (units (unkno wn) date) unknown) (unknown) (no (unknown) (unknown) Soft tissues: (units ( unknown) date) Overlying unknown) postoperative changes are noted. No suspicious soft (unknown) (no (unknown) (unknown) Spot (units (unkno wn) date) fluoroscopic unknown) intraoperative images demonstrate changes from a left total (unknown) (no (unknown) (unknown) TECHNIQUE: AP (units ( unknown) date) pelvis and unknown) lateral view of the left hip acquired. (unknown) (no (unknown) (unknown) TECHNIQUE: (units (unk nown) date) Multiple spot unknown) fluoroscopic intraoperative images of the left hip. (unknown) (no (unknown) (unknown) There is (units (unkno wn) date) generalized unknown) osteopenia. (unknown) (no (unknown) (unknown) XRay Report (units (un known) date) unknown) (unknown) (no (unknown) (unknown) appear intact. (units (unknown) date) Degenerative unknown) changes are seen in the right hip and included (unknown) (no (unknown) (unknown) arthroplasty (units (u nknown) date) with hardware unknown) components in expected positions. Degenerative (unknown) (no (unknown) (unknown) changes are (units (un known) date) unknown) (unknown) (no (unknown) (unknown) components in (units ( unknown) date) unknown) (unknown) (no (unknown) (unknown) densities. (units (unk nown) date) unknown) (unknown) (no (unknown) (unknown) expected (units (unkno wn) date) positions. The unknown) hip joint appears congruent. The visualized bony (unknown) (no (unknown) (unknown) findings. (units (unkn own) date) unknown) (unknown) (no (unknown) (unknown) hardware (units (unkno wn) date) components in unknown) expected positions. (unknown) (no (unknown) (unknown) hip (units (unkno wn) date) unknown) (unknown) (no (unknown) (unknown) lumbar spine. (units ( unknown) date) unknown) (unknown) (no (unknown) (unknown) partially imaged (units (unknown) date) in the right hip. unknown) (unknown) (no (unknown) (unknown) structures (units (unk nown) date) unknown) (unknown) (no (unknown) (unknown) tissue (units (unkno wn) date) unknown) (unknown) (no (unknown) (unknown) with (units (unkno wn) date) unknown) Result panel 89 (unknown) (no (unknown) (unknown) (no value) (units (unk nown) date) unknown) (unknown) (no (unknown) (unknown) 06/19/22 1357 (units ( unknown) date) unknown) (unknown) (no (unknown) (unknown) 36 x -3 cobalt (units (unknown) date) chrome head,one 6.5 unknown) mm screw (unknown) (no (unknown) (unknown) [id number] (units (unkno wn) date) unknown) (unknown) (no (unknown) (unknown) A 2nd cut was made (units (unknown) date) along the femoral unknown) neck at the base of the head and a napkin (unknown) (no (unknown) (unknown) A portion of the (units (unknown) date) labrum was resected. unknown) A saw was used to perform an osteotomy at (unknown) (no (unknown) (unknown) A trial cup was (units (unknown) date) placed and noted unknown) that it was appropriately sized and fluoroscopy (unknown) (no (unknown) (unknown) Additional (units (unk nown) date) broaching was unknown) performed. Canal finder was used to determine the (unknown) (no (unknown) (unknown) Age/Sex: 82 / F (units (unknown) date) unknown) (unknown) (no (unknown) (unknown) Anesthesia Type: (units (unknown) date) Spinal unknown) (unknown) (no (unknown) (unknown) Anesthesia was (units ( unknown) date) induced. She was unknown) positioned in the on the table in order to allow (unknown) (no (unknown) (unknown) Any tensor fascia (units (unknown) date) judy muscle that unknown) appeared to be contused or injured which was (unknown) (no (unknown) (unknown) Payable Processor: Sid Johnson (units (unknown) date) Miguel unknown) (unknown) (no (unknown) (unknown) Attention was then (units (unknown) date) directed to the unknown) femur. The femur was gently hyperextended (unknown) (no (unknown) (unknown) Blood products (units (unknown) date) transfused: none unknown) (unknown) (no (unknown) (unknown) Closure Type: (units ( unknown) date) primary unknown) (unknown) (no (unknown) (unknown) Complications: none (unit s (unknown) date) unknown) (unknown) (no (unknown) (unknown) Condition: stable (units (unknown) date) unknown) (unknown) (no (unknown) (unknown) : 1940 (units (unknown) date) Acct:[id number] unknown) (unknown) (no (unknown) (unknown) Date of Service: (units (unknown) date) 06/19/22 unknown) (unknown) (no (unknown) (unknown) Date of procedure: (units (unknown) date) 06/19/22 unknown) (unknown) (no (unknown) (unknown) Disposition: Acute (units (unknown) date) Care unknown) (unknown) (no (unknown) (unknown) Estimated Blood (units (unknown) date) Loss (mL): 200 unknown) (unknown) (no (unknown) (unknown) Exparel and (units (un known) date) Marcaine were unknown) injected. (unknown) (no (unknown) (unknown) Findings: (units (unkn own) date) unknown) (unknown) (no (unknown) (unknown) Indications: (units (u nknown) date) unknown) (unknown) (no (unknown) (unknown) [facility] (units (unknown) date) [address] unknown) [place] [address] (unknown) (no (unknown) (unknown) Left total hip (units (unknown) date) arthroplasty unknown) anterior approach (unknown) (no (unknown) (unknown) Marcaine and (units (u nknown) date) Exparel were unknown) injected. The stem was placed without difficulty. (unknown) (no (unknown) (unknown) Operative (units (unkn own) date) Date/Time/Diagnoses unknown) (unknown) (no (unknown) (unknown) Operative Note (units (unknown) date) unknown) (unknown) (no (unknown) (unknown) Operative Notes (units (unknown) date) unknown) (unknown) (no (unknown) (unknown) Patient: (units (unkno wn) date) Manny Magallanes MR#: unknown) [id number] (unknown) (no (unknown) (unknown) Plan for aftercare: (unit s (unknown) date) unknown) (unknown) (no (unknown) (unknown) Post-op diagnosis: (units (unknown) date) same unknown) (unknown) (no (unknown) (unknown) Post-operative (units (unknown) date) unknown) (unknown) (no (unknown) (unknown) Pre-op diagnosis: (units (unknown) date) 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 (unknown) (no (unknown) (unknown) Procedure + (units (un known) date) Clinicians unknown) (unknown) (no (unknown) (unknown) Procedure in (units (u nknown) date) detail: unknown) (unknown) (no (unknown) (unknown) Procedure: (units (unk nown) date) unknown) (unknown) (no (unknown) (unknown) Prosthetic devices, (unit s (unknown) date) grafts, tissues, unknown) transplants, or devices: (unknown) (no (unknown) (unknown) Provider: (units (unkn own) date) Zulema Grady MD unknown) (unknown) (no (unknown) (unknown) Repeat trial (units (un known) date) reduction and x-ray unknown) showed acceptable overall position, length, and (unknown) (no (unknown) (unknown) Risks discussed (units (unknown) date) included, but were unknown) not limited to, failure to relieve pain, leg (unknown) (no (unknown) (unknown) Same procedure as (units (unknown) date) scheduled: Yes unknown) (unknown) (no (unknown) (unknown) Severe left hip (units (unknown) date) osteoarthritis, unknown) adequate bone and stability (unknown) (no (unknown) (unknown) Signed (units (unkno wn) date) By:<Electronically unknown) signed by Zulema Grady MD> (unknown) (no (unknown) (unknown) Anuradha 54 (units (unknown) date) mm R3, neutral poly unknown) liner, size 8 standard offset anthology, (unknown) (no (unknown) (unknown) Specimen(s): none (units (unknown) date) sent unknown) (unknown) (no (unknown) (unknown) Surgeon: Zulema Biswas (units (unknown) date) Miguel A unknown) (unknown) (no (unknown) (unknown) The capsule was (units (unknown) date) closed with unknown) interrupted nonabsorbable sutures. The fascia of (unknown) (no (unknown) (unknown) The patient has had (unit s (unknown) date) progressively unknown) worsening left hip pain with radiographic (unknown) (no (unknown) (unknown) The patient was (units (unknown) date) brought to the unknown) operating room. Patient was carefully positioned (unknown) (no (unknown) (unknown) The patient will be (units (unknown) date) maintained on a unknown) standard total hip replacement protocol with (unknown) (no (unknown) (unknown) There was good (units (unknown) date) visualization of the unknown) femoral neck. A Cobra was placed superior (unknown) (no (unknown) (unknown) Time of procedure: (units (unknown) date) 13:54 unknown) (unknown) (no (unknown) (unknown) a minimal amount (units (unknown) date) was carefully unknown) resected. Capsule around the tensor was injected (unknown) (no (unknown) (unknown) above the lesser (units (unknown) date) trochanter. unknown) (unknown) (no (unknown) (unknown) acetabulum. (units (un known) date) Residual labrum was unknown) resected and additional osteophytes were (unknown) (no (unknown) (unknown) additional capsular (unit s (unknown) date) release was unknown) performed as needed in order to allow adequate (unknown) (no (unknown) (unknown) adduction and (units ( unknown) date) internal rotation. unknown) (unknown) (no (unknown) (unknown) adequate stability (units (unknown) date) of the broach and unknown) serial advancement of the broach without (unknown) (no (unknown) (unknown) adequately seated (units (unknown) date) and was well unknown) positioned. It was further stabilized with a (unknown) (no (unknown) (unknown) alignment of the (units (unknown) date) canal and position. unknown) Size 1 broach was placed. The canal was (unknown) (no (unknown) (unknown) alternatives to (units (unknown) date) surgery were unknown) discussed with the patient prior to proceeding. (unknown) (no (unknown) (unknown) and , as well (units (unknown) date) as the potential unknown) need for eventual revision of the (unknown) (no (unknown) (unknown) anticipated size. (units (unknown) date) unknown) (unknown) (no (unknown) (unknown) appropriate lateral (unit s (unknown) date) shuck. I also unknown) hyperflexed the hip and checked that there (unknown) (no (unknown) (unknown) aspect of the (units ( unknown) date) capsule. A 2nd unknown) retractor was placed along the inferior aspect of (unknown) (no (unknown) (unknown) attempting to (units ( unknown) date) direct the distal unknown) aspect of the broach more anteriorly and (unknown) (no (unknown) (unknown) avoiding excessive (units (unknown) date) anteversion. Trial unknown) reduction showed acceptable range of (unknown) (no (unknown) (unknown) changes consistent (units (unknown) date) with arthritis. unknown) Non-operative management has failed and the (unknown) (no (unknown) (unknown) condition. (units (unk nown) date) unknown) (unknown) (no (unknown) (unknown) confirm the (units (un known) date) position of the unknown) reaming and depth of reaming. I reamed 1 under the (unknown) (no (unknown) (unknown) confirmed position (units (unknown) date) and depth. The unknown) component was open and inserted without (unknown) (no (unknown) (unknown) difficulty (units (unk nown) date) fluoroscopic imaging unknown) was used to confirm that the cup had been (unknown) (no (unknown) (unknown) excessive (units (unkn own) date) impingement. unknown) Specific attention was directed at avoiding varus (unknown) (no (unknown) (unknown) femoral neck (units (u nknown) date) leaving unknown) approximately 1 finger breath of residual inferior neck (unknown) (no (unknown) (unknown) greater trochanter. (unit s (unknown) date) Dissection was unknown) carried out through skin and subcutaneous (unknown) (no (unknown) (unknown) hyperextension of (units (unknown) date) the hip. The [] unknown) lower extremity was prepped and draped in a (unknown) (no (unknown) (unknown) in the supine (units ( unknown) date) position. Time-out unknown) was performed and antibiotics were given. (unknown) (no (unknown) (unknown) judy was defined (units (unknown) date) and incised with a unknown) knife. Two Allis clamps were used to grasp (unknown) (no (unknown) (unknown) lateral to the (units (unknown) date) anterior superior unknown) iliac spine and extended distally towards the (unknown) (no (unknown) (unknown) length discrepancy, (units (unknown) date) dislocation, unknown) stiffness, infection, nerve damage, deep venous (unknown) (no (unknown) (unknown) line (units (unkno wn) date) circumferentially unknown) superior to the mid sagittal line and inferiorly to the (unknown) (no (unknown) (unknown) meticulously (units (u nknown) date) irrigated with unknown) normal saline. The hip was reduced and additional (unknown) (no (unknown) (unknown) mid sagittal line (units (unknown) date) until the lesser unknown) trochanter was palpable. A tag stitch was (unknown) (no (unknown) (unknown) motion, good (units (u nknown) date) stability, no unknown) posterior impingement, islam of leg length and (unknown) (no (unknown) (unknown) no evidence of the (units (unknown) date) femoral fracture. unknown) Final head was placed. Wound was (unknown) (no (unknown) (unknown) patient has (units (un known) date) requested total hip unknown) replacement. The risks, benefits and (unknown) (no (unknown) (unknown) patient will be (units (unknown) date) discharged home when unknown) safe for the home environment. (unknown) (no (unknown) (unknown) placed both in the (units (unknown) date) superior and unknown) inferior limb of the capsular insertion. Along (unknown) (no (unknown) (unknown) placed in a (units (un known) date) hyperextended unknown) slightly adducted position with maximum external (unknown) (no (unknown) (unknown) placed. Dissection (units (unknown) date) was carried out down unknown) along the neck. The circumflex vessels (unknown) (no (unknown) (unknown) prosthetic. (units (un known) date) unknown) (unknown) (no (unknown) (unknown) reamed up to 2 (units (unknown) date) under the templated unknown) size and fluoroscopy was brought in to (unknown) (no (unknown) (unknown) receive Aspirin and (unit s (unknown) date) sequential unknown) compression devices for DVT prophylaxis. The (unknown) (no (unknown) (unknown) rectus. Capsule was (unit s (unknown) date) carefully incised unknown) and released from the intertrochanteric (unknown) (no (unknown) (unknown) removed. A reamer (units (unknown) date) that was 4 mm below unknown) the templated size was placed by hand in (unknown) (no (unknown) (unknown) retractor that was (units (unknown) date) then gently placed unknown) over the rim of the acetabulum under the (unknown) (no (unknown) (unknown) ring of neck was (units (unknown) date) removed. Corkscrew unknown) was placed in the femoral head and the head (unknown) (no (unknown) (unknown) rotation. Box (units ( unknown) date) osteotome was used unknown) to check for any residual neck as well as (unknown) (no (unknown) (unknown) sclerotic bone (units (unknown) date) along the unknown) trochanter. Harvey pepper was placed in the femur. (unknown) (no (unknown) (unknown) single screw. (units ( unknown) date) Neutral poly liner unknown) was placed. The cup was tested and noted to be (unknown) (no (unknown) (unknown) stable. (units (unkno wn) date) unknown) (unknown) (no (unknown) (unknown) standard sterile (units (unknown) date) fashion. An anterior unknown) left hip incision was made 1 fingerbreadth (unknown) (no (unknown) (unknown) sterilely. Brief (units (unknown) date) Betadine soak was unknown) also used and was meticulously irrigated (unknown) (no (unknown) (unknown) subcutaneous tissue (unit s (unknown) date) and skin. We also unknown) used surgical glue. The wound was dressed (unknown) (no (unknown) (unknown) the acetabulum and (units (unknown) date) it was reamed to unknown) centralize the acetabulum. It was then (unknown) (no (unknown) (unknown) the acetabulum (units (unknown) date) capsule was also unknown) released up to the mid sagittal 12:00 position. (unknown) (no (unknown) (unknown) the fascia. Tensor (units (unknown) date) fascia judy was unknown) retracted laterally. A gelpi retractor was (unknown) (no (unknown) (unknown) the level of the (units (unknown) date) intertrochanteric unknown) line and the junction of the superior (unknown) (no (unknown) (unknown) the neck. The (units ( unknown) date) rectus insertion unknown) along the capsule was partially released. A 3rd (unknown) (no (unknown) (unknown) the tensor was (units (unknown) date) closed with unknown) interrupted and running Vicryl. No drain was placed. (unknown) (no (unknown) (unknown) then appropriately (units (unknown) date) broached up to the unknown) templated size as long as there was (unknown) (no (unknown) (unknown) thrombosis, (units (un known) date) pulmonary embolism, unknown) stroke, coma, heart attack, permanent paralysis (unknown) (no (unknown) (unknown) tissues. (units (unkno wn) date) Superficial unknown) hemostasis was achieved. The fascia over the tensor fascia (unknown) (no (unknown) (unknown) to the neck and the (unit s (unknown) date) gluteus fibers were unknown) carefully stripped from that superior (unknown) (no (unknown) (unknown) visualization of (units (unknown) date) the proximal femur unknown) with elevation of the femur. Patient was (unknown) (no (unknown) (unknown) was no impingement (units (unknown) date) anteriorly and there unknown) was good stability with flexion, (unknown) (no (unknown) (unknown) was removed without (unit s (unknown) date) difficulty. unknown) Retractors were then repositioned around the (unknown) (no (unknown) (unknown) weight bearing as (units (unknown) date) tolerated and unknown) anterior hip precautions. The patient will (unknown) (no (unknown) (unknown) were carefully (units (unknown) date) identified and unknown) cauterized with the Aqua Mantis. (unknown) (no (unknown) (unknown) with Exparel and (units (unknown) date) Marcaine. The skin unknown) was closed with barbed stitches for the (unknown) (no (unknown) (unknown) with normal saline. (unit s (unknown) date) Patient was unknown) transferred to recovery room in satisfactory Result panel 90 (unknown) (no date) (unknown) (unknown) 11.3 g/dl (unkn own) (unknown) (no date) (unknown) (unknown) 33.9 % (unkn own) Result panel 91 (unknown) (no (unknown) (unknown) (no value) (units (unk nown) date) unknown) (unknown) (no (unknown) (unknown) (past 8 hours): (units (unknown) date) unknown) (unknown) (no (unknown) (unknown) 00:40 06/20/22 (units (unknown) date) unknown) (unknown) (no (unknown) (unknown) 03:12 (units (unkno wn) date) unknown) (unknown) (no (unknown) (unknown) 06/19/22 06/20/22 (units (unknown) date) unknown) (unknown) (no (unknown) (unknown) 06/19/22 07:28 (units (unknown) date) unknown) (unknown) (no (unknown) (unknown) 06/19/22 14:03 (units (unknown) date) unknown) (unknown) (no (unknown) (unknown) 06/20/22 04:20 (units (unknown) date) unknown) (unknown) (no (unknown) (unknown) 06/20/22 (units (unkno wn) date) unknown) (unknown) (no (unknown) (unknown) 08:52 04:20 (units (un known) date) unknown) (unknown) (no (unknown) (unknown) 2 inh INHALATION (units (unknown) date) BID unknown) (unknown) (no (unknown) (unknown) 2 spray INTRANASAL (units (unknown) date) BID unknown) (unknown) (no (unknown) (unknown) 36 x -3 cobalt (units (unknown) date) chrome head,one 6.5 unknown) mm screw (unknown) (no (unknown) (unknown) 64720 (units (unkno wn) date) unknown) (unknown) (no (unknown) (unknown) ASA 81mg BID x 6 (units (unknown) date) weeks for VTE unknown) prophylaxis. Outpt PT, f/u in office in 2 weeks. (unknown) (no (unknown) (unknown) Activity: (units (unkn own) date) Weightbearing as unknown) tolerated to left hip. Anterior hip precautions. (unknown) (no (unknown) (unknown) Age/Sex: 82 / F (units (unknown) date) unknown) (unknown) (no (unknown) (unknown) Anesthesia Type: (units (unknown) date) Spinal unknown) (unknown) (no (unknown) (unknown) Carolyn Paredes MD (units (unknown) date) unknown) (unknown) (no (unknown) (unknown) Assessment and (units (unknown) date) Plan unknown) (unknown) (no (unknown) (unknown) Assessment: (units (un known) date) unknown) (unknown) (no (unknown) (unknown) Payable Processor: Sid Johnson (units (unknown) date) Miguel unknown) (unknown) (no (unknown) (unknown) Asthma (units (unkno wn) date) unknown) (unknown) (no (unknown) (unknown) Attending (units (unkn own) date) Provider: unknown) Zulema Grady (unknown) (no (unknown) (unknown) RJ Calle, on (units ( unknown) date) 06/29/2022 @ 1:30 unknown) pm at [employer] office in [place].) (unknown) (no (unknown) (unknown) Blood Pressure (units (unknown) date) 98/52 L 103/62 unknown) (unknown) (no (unknown) (unknown) Blood products (units (unknown) date) transfused: none unknown) (unknown) (no (unknown) (unknown) Chief complaint: (units (unknown) date) SUGEY Left *OPB* unknown) (unknown) (no (unknown) (unknown) Closure Type: (units ( unknown) date) primary unknown) (unknown) (no (unknown) (unknown) Cold/Heat Therapy: (units (unknown) date) Ice to hip as unknown) needed for pain. (unknown) (no (unknown) (unknown) Comment: (units (unkno wn) date) unknown) (unknown) (no (unknown) (unknown) Consult to (units (unk nown) date) Anesthesiology unknown) Routine (unknown) (no (unknown) (unknown) Consult to (units (unk nown) date) Discharge Planning unknown) Routine (unknown) (no (unknown) (unknown) Consult to (units (unk nown) date) Physical Therapy unknown) Evaluate + Treat (unknown) (no (unknown) (unknown) Consulting (units (unk nown) date) Provider: unknown) Anesthesiologist (unknown) (no (unknown) (unknown) Consults: (units (unkn own) date) unknown) (unknown) (no (unknown) (unknown) Continued (units (unkn own) date) unknown) (unknown) (no (unknown) (unknown) : 1940 (units (unknown) date) Acct:[id number] unknown) (unknown) (no (unknown) (unknown) Carolyn Paredes MD (units (unknown) date) [Primary Care unknown) Provider] (unknown) (no (unknown) (unknown) Date Patient Seen: (units (unknown) date) 06/20/22 unknown) (unknown) (no (unknown) (unknown) Date of Service: (units (unknown) date) 06/19/22 unknown) (unknown) (no (unknown) (unknown) Date of procedure: (units (unknown) date) 06/19/22 unknown) (unknown) (no (unknown) (unknown) Diet/Activity/Allegra (units (unknown) date) tments unknown) (unknown) (no (unknown) (unknown) Diet: Diet as (units ( unknown) date) Tolerated unknown) (unknown) (no (unknown) (unknown) Difficult (units (unkn own) date) intravenous access unknown) (unknown) (no (unknown) (unknown) Discharge (Order); (units (unknown) date) Ordered 06/20/22 unknown) (unknown) (no (unknown) (unknown) Discharge (units (unkn own) date) Assessment + Plan unknown) (unknown) (no (unknown) (unknown) Discharge Data (units (unknown) date) unknown) (unknown) (no (unknown) (unknown) Discharge Date: (units (unknown) date) 06/20/22 unknown) (unknown) (no (unknown) (unknown) Discharge (units (unkn own) date) Diagnosis: unknown) (unknown) (no (unknown) (unknown) Discharge Orders: (units (unknown) date) unknown) (unknown) (no (unknown) (unknown) Discharge Plan (units (unknown) date) unknown) (unknown) (no (unknown) (unknown) Discharge (units (unkn own) date) Providers unknown) (unknown) (no (unknown) (unknown) Discharge Summary (units (unknown) date) unknown) (unknown) (no (unknown) (unknown) Discharge home. Pt (units (unknown) date) has all post-op unknown) meds, including APAP, IBPN, and oxycodone. (unknown) (no (unknown) (unknown) Discharge orders + (units (unknown) date) Medications unknown) (unknown) (no (unknown) (unknown) Discharge (units (unkn own) date) provider: unknown) (unknown) (no (unknown) (unknown) Dressing: May (units ( unknown) date) shower. Leave unknown) Aquacel dressing in place until follow up in (unknown) (no (unknown) (unknown) Easy bruisability (units (unknown) date) unknown) (unknown) (no (unknown) (unknown) Estimated Blood (units (unknown) date) Loss (mL): 200 unknown) (unknown) (no (unknown) (unknown) Exam (units (unkno wn) date) unknown) (unknown) (no (unknown) (unknown) Findings: (units (unkn own) date) unknown) (unknown) (no (unknown) (unknown) Follow (units (unkno wn) date) up/Referrals: unknown) (unknown) (no (unknown) (unknown) GERD (units (unkno wn) date) (gastroesophageal unknown) reflux disease) (unknown) (no (unknown) (unknown) Hct 33.9 L (units (unk nown) date) unknown) (unknown) (no (unknown) (unknown) Hearing impaired (units (unknown) date) unknown) (unknown) (no (unknown) (unknown) Hgb 11.3 L (units (unk nown) date) unknown) (unknown) (no (unknown) (unknown) History of Mohs (units (unknown) date) micrographic unknown) surgery for skin cancer (unknown) (no (unknown) (unknown) History of Brittany (units (unknown) date) fundoplication unknown) (unknown) (no (unknown) (unknown) History of Present (units (unknown) date) Illness unknown) (unknown) (no (unknown) (unknown) History of surgery (units (unknown) date) (04/2022) unknown) (unknown) (no (unknown) (unknown) History of total (units (unknown) date) left knee unknown) replacement (unknown) (no (unknown) (unknown) History of total (units (unknown) date) right knee unknown) replacement (unknown) (no (unknown) (unknown) Hospital Course (units (unknown) date) unknown) (unknown) (no (unknown) (unknown) Hx of bilateral (units (unknown) date) cataract extraction unknown) (unknown) (no (unknown) (unknown) Hx of colonoscopy (units (unknown) date) unknown) (unknown) (no (unknown) (unknown) Hx of plastic (units ( unknown) date) surgery unknown) (unknown) (no (unknown) (unknown) Hx of (units (unkno wn) date) tonsillectomy unknown) (unknown) (no (unknown) (unknown) Indications: (units (u nknown) date) unknown) (unknown) (no (unknown) (unknown) Instructions: DI (units (unknown) date) for Hip Replacement unknown) (unknown) (no (unknown) (unknown) [facility] (units (unknown) date) [address] unknown) [place] [address] (unknown) (no (unknown) (unknown) Latoya Calle PA-C (units (unknown) date) unknown) (unknown) (no (unknown) (unknown) Laboratory Results (units (unknown) date) - last 24 hr unknown) (unknown) (no (unknown) (unknown) Labs (units (unkno wn) date) unknown) (unknown) (no (unknown) (unknown) Labs: (units (unkno wn) date) unknown) (unknown) (no (unknown) (unknown) Left hip (units (unkno wn) date) osteoarthritis w/ unknown) protrusio, s/p left total hip arthroplasty (unknown) (no (unknown) (unknown) Left total hip (units (unknown) date) arthroplasty unknown) anterior approach (unknown) (no (unknown) (unknown) Medical History (units (unknown) date) (Updated 06/11/22 @ unknown) 10:14 by Harleen Griggs RN) (unknown) (no (unknown) (unknown) Narrative: (units (unk nown) date) unknown) (unknown) (no (unknown) (unknown) Objective (units (unkn own) date) unknown) (unknown) (no (unknown) (unknown) Operative (units (unkn own) date) Date/Time/Diagnoses unknown) (unknown) (no (unknown) (unknown) Operative Notes (units (unknown) date) unknown) (unknown) (no (unknown) (unknown) Ordered By: Latoya (units (unknown) date) Beh unknown) (unknown) (no (unknown) (unknown) Osteoarthritis (units (unknown) date) unknown) (unknown) (no (unknown) (unknown) Oxygen Delivery (units (unknown) date) Method Room Air unknown) (unknown) (no (unknown) (unknown) Oxygen Flow Rate 0 (units (unknown) date) 0 unknown) (unknown) (no (unknown) (unknown) Oxygen Flow Rate 0 (units (unknown) date) unknown) (unknown) (no (unknown) (unknown) PFSH (units (unkno wn) date) unknown) (unknown) (no (unknown) (unknown) Patient (units (unkno wn) date) Disposition: Home unknown) (unknown) (no (unknown) (unknown) Patient: (units (unkno wn) date) Manny Magallanes MR#: unknown) [id number] (unknown) (no (unknown) (unknown) Physician (units (unkn own) date) Instructions: post unknown) op SUGEY protocol (unknown) (no (unknown) (unknown) Plan of Treatment: (units (unknown) date) unknown) (unknown) (no (unknown) (unknown) Post-op diagnosis: (units (unknown) date) same unknown) (unknown) (no (unknown) (unknown) Pre-op diagnosis: (units (unknown) date) 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 (unknown) (no (unknown) (unknown) Prescriptions: (units (unknown) date) unknown) (unknown) (no (unknown) (unknown) Primary Care (units (u nknown) date) Provider: unknown) Carolyn Paredes (unknown) (no (unknown) (unknown) Primary care (units (u nknown) date) physician: unknown) (unknown) (no (unknown) (unknown) Procedure + (units (un known) date) Clinicians unknown) (unknown) (no (unknown) (unknown) Procedure: (units (unk nown) date) unknown) (unknown) (no (unknown) (unknown) Prosthetic (units (unk nown) date) devices, grafts, unknown) tissues, transplants, or devices: (unknown) (no (unknown) (unknown) Provider (units (unkno wn) date) unknown) (unknown) (no (unknown) (unknown) Provider: (units (unkn own) date) Latoya Calle P.A-C unknown) (unknown) (no (unknown) (unknown) Pulse Oximetry 97 (units (unknown) date) 96 unknown) (unknown) (no (unknown) (unknown) Pulse Rate 69 58 L (units (unknown) date) unknown) (unknown) (no (unknown) (unknown) Qvar RediHaler 80 (units (unknown) date) mcg/actuation Hfa unknown) Aerosol Breath Activated (unknown) (no (unknown) (unknown) Reason for (units (unk nown) date) consultation: unknown) Regional block for post operative pain control (unknown) (no (unknown) (unknown) Report to your (units (unknown) date) healthcare provider unknown) any signs of infection, such as:: chills, (unknown) (no (unknown) (unknown) Respiratory Rate (units (unknown) date) 16 17 unknown) (unknown) (no (unknown) (unknown) Risks discussed (units (unknown) date) included, but were unknown) not limited to, failure to relieve pain, leg (unknown) (no (unknown) (unknown) SARS-CoV-2 (PCR) (units (unknown) date) Negative unknown) (unknown) (no (unknown) (unknown) Same procedure as (units (unknown) date) scheduled: Yes unknown) (unknown) (no (unknown) (unknown) Severe left hip (units (unknown) date) osteoarthritis, unknown) adequate bone and stability (unknown) (no (unknown) (unknown) Signed By: (units (unk nown) date) unknown) (unknown) (no (unknown) (unknown) Skin cancer (units (un known) date) unknown) (unknown) (no (unknown) (unknown) Skin/Wound/Dressin (units (unknown) date) g Care unknown) (unknown) (no (unknown) (unknown) Grady [employer] Nephew 54 (units (unknown) date) mm R3, neutral poly unknown) liner, size 8 standard offset anthology, (unknown) (no (unknown) (unknown) Zulema Grady MD (units (unknown) date) [Physician] - As unknown) previously scheduled (Follow up w/ Latoya (unknown) (no (unknown) (unknown) Smoking Status: (units (unknown) date) Former smoker unknown) (unknown) (no (unknown) (unknown) Social History (units (unknown) date) unknown) (unknown) (no (unknown) (unknown) Specimen(s): none (units (unknown) date) sent unknown) (unknown) (no (unknown) (unknown) Stand Alone Forms: (units (unknown) date) Patient Portal/API, unknown) Surgery Discharge (unknown) (no (unknown) (unknown) Summary (units (unkno wn) date) unknown) (unknown) (no (unknown) (unknown) Surgeon: Zulema Biswas (units (unknown) date) Miguel A unknown) (unknown) (no (unknown) (unknown) Surgical History (units (unknown) date) (Updated 06/11/22 @ unknown) 10:14 by Harleen Griggs RN) (unknown) (no (unknown) (unknown) Temperature 97.5 F (units (unknown) date) L 96.8 F L unknown) (unknown) (no (unknown) (unknown) The patient has (units (unknown) date) had progressively unknown) worsening left hip pain with radiographic (unknown) (no (unknown) (unknown) Time Patient Seen: (units (unknown) date) 07:56 unknown) (unknown) (no (unknown) (unknown) Time of procedure: (units (unknown) date) 13:54 unknown) (unknown) (no (unknown) (unknown) Visit (units (unkno wn) date) Report/Discharge unknown) Packet (unknown) (no (unknown) (unknown) Vital Signs (units (un known) date) unknown) (unknown) (no (unknown) (unknown) [Embedded Image (units (unknown) date) Not Available] unknown) (unknown) (no (unknown) (unknown) alcohol intake: (units (unknown) date) never unknown) (unknown) (no (unknown) (unknown) alternatives to (units (unknown) date) surgery were unknown) discussed with the patient prior to proceeding. (unknown) (no (unknown) (unknown) and , as well (units (unknown) date) as the potential unknown) need for eventual revision of the (unknown) (no (unknown) (unknown) changes consistent (units (unknown) date) with arthritis. unknown) Non-operative management has failed and the (unknown) (no (unknown) (unknown) dressing becomes (units (unknown) date) saturated inside. unknown) (unknown) (no (unknown) (unknown) fever, night (units (u nknown) date) sweats, unusual unknown) drainage and unusual redness (unknown) (no (unknown) (unknown) household members: (units (unknown) date) spouse unknown) (unknown) (no (unknown) (unknown) length discrepancy, (units (unknown) date) dislocation, unknown) stiffness, infection, nerve damage, deep venous (unknown) (no (unknown) (unknown) office. No bathing (units (unknown) date) or otherwise unknown) soaking incision. Call the office if the (unknown) (no (unknown) (unknown) patient has (units (un known) date) requested total hip unknown) replacement. The risks, benefits and (unknown) (no (unknown) (unknown) prosthetic. (units (un known) date) unknown) (unknown) (no (unknown) (unknown) thrombosis, (units (un known) date) pulmonary embolism, unknown) stroke, coma, heart attack, permanent paralysis (unknown) (no (unknown) (unknown) triamcinolone (units ( unknown) date) acetonide unknown) [Nasacort] 55 mcg Aerosol,[place] Result panel 92 (unknown) (no (unknown) (unknown) (no value) (units (unk nown) date) unknown) (unknown) (no (unknown) (unknown) (past 8 hours): (units (unknown) date) unknown) (unknown) (no (unknown) (unknown) 00:40 06/20/22 (units (unknown) date) unknown) (unknown) (no (unknown) (unknown) 03:12 (units (unkno wn) date) unknown) (unknown) (no (unknown) (unknown) 06/19/22 06/20/22 (units (unknown) date) unknown) (unknown) (no (unknown) (unknown) 06/19/22 07:28 (units (unknown) date) unknown) (unknown) (no (unknown) (unknown) 06/19/22 14:03 (units (unknown) date) unknown) (unknown) (no (unknown) (unknown) 06/20/22 04:20 (units (unknown) date) unknown) (unknown) (no (unknown) (unknown) 06/20/22 0819 (units ( unknown) date) unknown) (unknown) (no (unknown) (unknown) 06/20/22 (units (unkno wn) date) unknown) (unknown) (no (unknown) (unknown) 08:52 04:20 (units (un known) date) unknown) (unknown) (no (unknown) (unknown) 2 inh INHALATION (units (unknown) date) BID unknown) (unknown) (no (unknown) (unknown) 2 spray INTRANASAL (units (unknown) date) BID unknown) (unknown) (no (unknown) (unknown) 36 x -3 cobalt (units (unknown) date) chrome head,one 6.5 unknown) mm screw (unknown) (no (unknown) (unknown) 5/5 strength in (units (unknown) date) hip flexors, unknown) quadriceps, hamstrings, DF, PF, EHL on the left. (unknown) (no (unknown) (unknown) [id number] (units (unkno wn) date) unknown) (unknown) (no (unknown) (unknown) ASA 81mg BID x 6 (units (unknown) date) weeks for VTE unknown) prophylaxis. Outpt PT, f/u in office in 2 weeks. (unknown) (no (unknown) (unknown) Activity: (units (unkn own) date) Weightbearing as unknown) tolerated to left hip. Anterior hip precautions. (unknown) (no (unknown) (unknown) Age/Sex: 82 / F (units (unknown) date) unknown) (unknown) (no (unknown) (unknown) Anesthesia Type: (units (unknown) date) Spinal unknown) (unknown) (no (unknown) (unknown) Carolyn Paredes MD (units (unknown) date) unknown) (unknown) (no (unknown) (unknown) Assessment and (units (unknown) date) Plan unknown) (unknown) (no (unknown) (unknown) Assessment: (units (un known) date) unknown) (unknown) (no (unknown) (unknown) Payable Processor: Sid Johnson (units (unknown) date) Miguel unknown) (unknown) (no (unknown) (unknown) Asthma (units (unkno wn) date) unknown) (unknown) (no (unknown) (unknown) Attending (units (unkn own) date) Provider: unknown) Zulema Grady (unknown) (no (unknown) (unknown) RJ Calle, on (units ( unknown) date) 06/29/2022 @ 1:30 unknown) pm at [employer] office in [place].) (unknown) (no (unknown) (unknown) Blood Pressure (units (unknown) date) 98/52 L 103/62 unknown) (unknown) (no (unknown) (unknown) Blood products (units (unknown) date) transfused: none unknown) (unknown) (no (unknown) (unknown) Chief complaint: (units (unknown) date) SUGEY Left *OPB* unknown) (unknown) (no (unknown) (unknown) Closure Type: (units ( unknown) date) primary unknown) (unknown) (no (unknown) (unknown) Cold/Heat Therapy: (units (unknown) date) Ice to hip as unknown) needed for pain. (unknown) (no (unknown) (unknown) Comment: (units (unkno wn) date) unknown) (unknown) (no (unknown) (unknown) Consult to (units (unk nown) date) Anesthesiology unknown) Routine (unknown) (no (unknown) (unknown) Consult to (units (unk nown) date) Discharge Planning unknown) Routine (unknown) (no (unknown) (unknown) Consult to (units (unk nown) date) Physical Therapy unknown) Evaluate + Treat (unknown) (no (unknown) (unknown) Consulting (units (unk nown) date) Provider: unknown) Anesthesiologist (unknown) (no (unknown) (unknown) Consults: (units (unkn own) date) unknown) (unknown) (no (unknown) (unknown) Continued (units (unkn own) date) unknown) (unknown) (no (unknown) (unknown) : 1940 (units (unknown) date) Acct:[id number] unknown) (unknown) (no (unknown) (unknown) Carolyn Paredes MD (units (unknown) date) [Primary Care unknown) Provider] (unknown) (no (unknown) (unknown) Date Patient Seen: (units (unknown) date) 06/20/22 unknown) (unknown) (no (unknown) (unknown) Date of Service: (units (unknown) date) 06/19/22 unknown) (unknown) (no (unknown) (unknown) Date of procedure: (units (unknown) date) 06/19/22 unknown) (unknown) (no (unknown) (unknown) Diet/Activity/[place] (units (unknown) date) tments unknown) (unknown) (no (unknown) (unknown) Diet: Diet as (units ( unknown) date) Tolerated unknown) (unknown) (no (unknown) (unknown) Difficult (units (unkn own) date) intravenous access unknown) (unknown) (no (unknown) (unknown) Discharge (Order); (units (unknown) date) Ordered 06/20/22 unknown) (unknown) (no (unknown) (unknown) Discharge (units (unkn own) date) Assessment + Plan unknown) (unknown) (no (unknown) (unknown) Discharge Data (units (unknown) date) unknown) (unknown) (no (unknown) (unknown) Discharge Date: (units (unknown) date) 06/20/22 unknown) (unknown) (no (unknown) (unknown) Discharge (units (unkn own) date) Diagnosis: unknown) (unknown) (no (unknown) (unknown) Discharge Orders: (units (unknown) date) unknown) (unknown) (no (unknown) (unknown) Discharge Plan (units (unknown) date) unknown) (unknown) (no (unknown) (unknown) Discharge (units (unkn own) date) Providers unknown) (unknown) (no (unknown) (unknown) Discharge Summary (units (unknown) date) unknown) (unknown) (no (unknown) (unknown) Discharge home. Pt (units (unknown) date) has all post-op unknown) meds, including APAP, IBPN, and oxycodone. (unknown) (no (unknown) (unknown) Discharge orders + (units (unknown) date) Medications unknown) (unknown) (no (unknown) (unknown) Discharge (units (unkn own) date) provider: unknown) (unknown) (no (unknown) (unknown) Dressing: May (units ( unknown) date) shower. Leave unknown) Aquacel dressing in place until follow up in (unknown) (no (unknown) (unknown) Easy bruisability (units (unknown) date) unknown) (unknown) (no (unknown) (unknown) Estimated Blood (units (unknown) date) Loss (mL): 200 unknown) (unknown) (no (unknown) (unknown) Exam Narrative: (units (unknown) date) unknown) (unknown) (no (unknown) (unknown) Exam (units (unkno wn) date) unknown) (unknown) (no (unknown) (unknown) Findings: (units (unkn own) date) unknown) (unknown) (no (unknown) (unknown) Follow (units (unkno wn) date) up/Referrals: unknown) (unknown) (no (unknown) (unknown) GERD (units (unkno wn) date) (gastroesophageal unknown) reflux disease) (unknown) (no (unknown) (unknown) Hct 33.9 L (units (unk nown) date) unknown) (unknown) (no (unknown) (unknown) Hearing impaired (units (unknown) date) unknown) (unknown) (no (unknown) (unknown) Hgb 11.3 L (units (unk nown) date) unknown) (unknown) (no (unknown) (unknown) History of Mohs (units (unknown) date) micrographic unknown) surgery for skin cancer (unknown) (no (unknown) (unknown) History of Brittany (units (unknown) date) fundoplication unknown) (unknown) (no (unknown) (unknown) History of Present (units (unknown) date) Illness unknown) (unknown) (no (unknown) (unknown) History of surgery (units (unknown) date) (04/2022) unknown) (unknown) (no (unknown) (unknown) History of total (units (unknown) date) left knee unknown) replacement (unknown) (no (unknown) (unknown) History of total (units (unknown) date) right knee unknown) replacement (unknown) (no (unknown) (unknown) Hospital Course (units (unknown) date) unknown) (unknown) (no (unknown) (unknown) Hospital Course: (units (unknown) date) unknown) (unknown) (no (unknown) (unknown) Hx of bilateral (units (unknown) date) cataract extraction unknown) (unknown) (no (unknown) (unknown) Hx of colonoscopy (units (unknown) date) unknown) (unknown) (no (unknown) (unknown) Hx of plastic (units ( unknown) date) surgery unknown) (unknown) (no (unknown) (unknown) Hx of (units (unkno wn) date) tonsillectomy unknown) (unknown) (no (unknown) (unknown) Indications: (units (u nknown) date) unknown) (unknown) (no (unknown) (unknown) Instructions: DI (units (unknown) date) for Hip Replacement unknown) (unknown) (no (unknown) (unknown) [facility] (units (unknown) date) [address] unknown) [place] [id number] (unknown) (no (unknown) (unknown) Latoya Calle PA-C (units (unknown) date) unknown) (unknown) (no (unknown) (unknown) Laboratory Results (units (unknown) date) - last 24 hr unknown) (unknown) (no (unknown) (unknown) Labs (units (unkno wn) date) unknown) (unknown) (no (unknown) (unknown) Labs: (units (unkno wn) date) unknown) (unknown) (no (unknown) (unknown) Left hip (units (unkno wn) date) osteoarthritis w/ unknown) protrusio, s/p left total hip arthroplasty (unknown) (no (unknown) (unknown) Left total hip (units (unknown) date) arthroplasty unknown) anterior approach (unknown) (no (unknown) (unknown) Medical History (units (unknown) date) (Updated 06/11/22 @ unknown) 10:14 by Harleen Griggs RN) (unknown) (no (unknown) (unknown) Ms Magallanes's (units (un known) date) hospital course was unknown) unremarkable. On POD# 1, she was feeling well (unknown) (no (unknown) (unknown) Narrative (units (unkn own) date) unknown) (unknown) (no (unknown) (unknown) Narrative: (units (unk nown) date) unknown) (unknown) (no (unknown) (unknown) Objective (units (unkn own) date) unknown) (unknown) (no (unknown) (unknown) Operative (units (unkn own) date) Date/Time/Diagnoses unknown) (unknown) (no (unknown) (unknown) Operative Notes (units (unknown) date) unknown) (unknown) (no (unknown) (unknown) Ordered By: Latoya (units (unknown) date) Beh unknown) (unknown) (no (unknown) (unknown) Osteoarthritis (units (unknown) date) unknown) (unknown) (no (unknown) (unknown) Oxygen Delivery (units (unknown) date) Method Room Air unknown) (unknown) (no (unknown) (unknown) Oxygen Flow Rate 0 (units (unknown) date) 0 unknown) (unknown) (no (unknown) (unknown) Oxygen Flow Rate 0 (units (unknown) date) unknown) (unknown) (no (unknown) (unknown) PFSH (units (unkno wn) date) unknown) (unknown) (no (unknown) (unknown) Patient (units (unkno wn) date) Disposition: Home unknown) (unknown) (no (unknown) (unknown) Patient: (units (unkno wn) date) Manny Magallanes MR#: unknown) [id number] (unknown) (no (unknown) (unknown) Physician (units (unkn own) date) Instructions: post unknown) op SUGEY protocol (unknown) (no (unknown) (unknown) Plan of Treatment: (units (unknown) date) unknown) (unknown) (no (unknown) (unknown) Post-op diagnosis: (units (unknown) date) same unknown) (unknown) (no (unknown) (unknown) Pre-op diagnosis: (units (unknown) date) 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 (unknown) (no (unknown) (unknown) Prescriptions: (units (unknown) date) unknown) (unknown) (no (unknown) (unknown) Primary Care (units (u nknown) date) Provider: unknown) Carolyn Paredes (unknown) (no (unknown) (unknown) Primary care (units (u nknown) date) physician: unknown) (unknown) (no (unknown) (unknown) Procedure + (units (un known) date) Clinicians unknown) (unknown) (no (unknown) (unknown) Procedure: (units (unk nown) date) unknown) (unknown) (no (unknown) (unknown) Prosthetic (units (unk nown) date) devices, grafts, unknown) tissues, transplants, or devices: (unknown) (no (unknown) (unknown) Provider (units (unkno wn) date) unknown) (unknown) (no (unknown) (unknown) Provider: (units (unkn own) date) Latoya Calle P.A-C unknown) (unknown) (no (unknown) (unknown) Pulse Oximetry 97 (units (unknown) date) 96 unknown) (unknown) (no (unknown) (unknown) Pulse Rate 69 58 L (units (unknown) date) unknown) (unknown) (no (unknown) (unknown) Qvar RediHaler 80 (units (unknown) date) mcg/actuation Hfa unknown) Aerosol Breath Activated (unknown) (no (unknown) (unknown) Reason for (units (unk nown) date) consultation: unknown) Regional block for post operative pain control (unknown) (no (unknown) (unknown) Report to your (units (unknown) date) healthcare provider unknown) any signs of infection, such as:: chills, (unknown) (no (unknown) (unknown) Respiratory Rate (units (unknown) date) 16 17 unknown) (unknown) (no (unknown) (unknown) Risks discussed (units (unknown) date) included, but were unknown) not limited to, failure to relieve pain, leg (unknown) (no (unknown) (unknown) SARS-CoV-2 (PCR) (units (unknown) date) Negative unknown) (unknown) (no (unknown) (unknown) Same procedure as (units (unknown) date) scheduled: Yes unknown) (unknown) (no (unknown) (unknown) Sensation to light (units (unknown) date) touch intact unknown) throughout LLE. Calves soft, compressible, (unknown) (no (unknown) (unknown) Severe left hip (units (unknown) date) osteoarthritis, unknown) adequate bone and stability (unknown) (no (unknown) (unknown) Signed (units (unkno wn) date) By:<Electronically unknown) signed by Latoya Rodriguez Beh> (unknown) (no (unknown) (unknown) Skin cancer (units (un known) date) unknown) (unknown) (no (unknown) (unknown) Skin/Wound/Dressin (units (unknown) date) g Care unknown) (unknown) (no (unknown) (unknown) Grady [employer] Nephew 54 (units (unknown) date) mm R3, neutral poly unknown) liner, size 8 standard offset anthology, (unknown) (no (unknown) (unknown) Zulema Grady MD (units (unknown) date) [Physician] - As unknown) previously scheduled (Follow up w/ Latoya (unknown) (no (unknown) (unknown) Smoking Status: (units (unknown) date) Former smoker unknown) (unknown) (no (unknown) (unknown) Social History (units (unknown) date) unknown) (unknown) (no (unknown) (unknown) Specimen(s): none (units (unknown) date) sent unknown) (unknown) (no (unknown) (unknown) Stand Alone Forms: (units (unknown) date) Patient Portal/API, unknown) Surgery Discharge (unknown) (no (unknown) (unknown) Summary (units (unkno wn) date) unknown) (unknown) (no (unknown) (unknown) Surgeon: Zulema Biswas (units (unknown) date) Miguel A unknown) (unknown) (no (unknown) (unknown) Surgical History (units (unknown) date) (Updated 06/11/22 @ unknown) 10:14 by Harleen Griggs RN) (unknown) (no (unknown) (unknown) Temperature 97.5 F (units (unknown) date) L 96.8 F L unknown) (unknown) (no (unknown) (unknown) The patient has (units (unknown) date) had progressively unknown) worsening left hip pain with radiographic (unknown) (no (unknown) (unknown) Time Patient Seen: (units (unknown) date) 07:56 unknown) (unknown) (no (unknown) (unknown) Time of procedure: (units (unknown) date) 13:54 unknown) (unknown) (no (unknown) (unknown) Visit (units (unkno wn) date) Report/Discharge unknown) Packet (unknown) (no (unknown) (unknown) Vital Signs (units (un known) date) unknown) (unknown) (no (unknown) (unknown) [Embedded Image (units (unknown) date) Not Available] unknown) (unknown) (no (unknown) (unknown) alcohol intake: (units (unknown) date) never unknown) (unknown) (no (unknown) (unknown) alternatives to (units (unknown) date) surgery were unknown) discussed with the patient prior to proceeding. (unknown) (no (unknown) (unknown) and , as well (units (unknown) date) as the potential unknown) need for eventual revision of the (unknown) (no (unknown) (unknown) and wanted to go (units (unknown) date) home. She was unknown) eating and voiding without difficulty and her (unknown) (no (unknown) (unknown) changes consistent (units (unknown) date) with arthritis. unknown) Non-operative management has failed and the (unknown) (no (unknown) (unknown) dressing becomes (units (unknown) date) saturated inside. unknown) (unknown) (no (unknown) (unknown) fever, night (units (u nknown) date) sweats, unusual unknown) drainage and unusual redness (unknown) (no (unknown) (unknown) household members: (units (unknown) date) spouse unknown) (unknown) (no (unknown) (unknown) length discrepancy, (units (unknown) date) dislocation, unknown) stiffness, infection, nerve damage, deep venous (unknown) (no (unknown) (unknown) nontender and (units ( unknown) date) without palpable unknown) cords or masses. Aquacel dressing CDI. (unknown) (no (unknown) (unknown) office. No bathing (units (unknown) date) or otherwise unknown) soaking incision. Call the office if the (unknown) (no (unknown) (unknown) pain was (units (unkno wn) date) well-controlled unknown) with oral medication. She was evaluated by PT and felt (unknown) (no (unknown) (unknown) patient has (units (un known) date) requested total hip unknown) replacement. The risks, benefits and (unknown) (no (unknown) (unknown) prosthetic. (units (un known) date) unknown) (unknown) (no (unknown) (unknown) thrombosis, (units (un known) date) pulmonary embolism, unknown) stroke, coma, heart attack, permanent paralysis (unknown) (no (unknown) (unknown) to be safe for (units (unknown) date) discharge home. unknown) (unknown) (no (unknown) (unknown) triamcinolone (units ( unknown) date) acetonide unknown) [Nasacort] 55 mcg Aerosol,[place] Result panel 93 (unknown) (no (unknown) (unknown) (no value) (units (unk nown) date) unknown) (unknown) (no (unknown) (unknown) 06/25/22 (units (unkno wn) date) unknown) (unknown) (no (unknown) (unknown) [address]units (unkn own) date) [address] unknown) (unknown) (no (unknown) (unknown) [id number] (units (unkno wn) date) unknown) (unknown) (no (unknown) (unknown) Accession (units (unkn own) date) Number: unknown) [id number] (unknown) (no (unknown) (unknown) Age/Sex: 82 / F (units (unknown) date) Date of Service: unknown) (unknown) (no (unknown) (unknown) [place] (units ( unknown) date) [id number] unknown) (unknown) (no (unknown) (unknown) COMPARISON: (units (un known) date) None. unknown) (unknown) (no (unknown) (unknown) Caution: Report (units (unknown) date) not yet unknown) finalized and possibly incomplete! (unknown) (no (unknown) (unknown) : 1940 (units (unknown) date) Acct:[id number] unknown) (unknown) (no (unknown) (unknown) Dictated by: (units (un known) date) Saman Hudson RRA unknown) Interpreted: Farhad Jacob MD on 06/25/2022 at 15:38 (unknown) (no (unknown) (unknown) Draft (units (unkno wn) date) unknown) (unknown) (no (unknown) (unknown) FINDINGS: The (units ( unknown) date) common femoral, unknown) femoral and popliteal veins are normally (unknown) (no (unknown) (unknown) IMPRESSION: No (units (unknown) date) deep venous unknown) thrombosis identified within the left lower (unknown) (no (unknown) (unknown) INDICATIONS: (units (u nknown) date) PAIN unknown) (unknown) (no (unknown) (unknown) [facility] (units (unknown) date) unknown) (unknown) (no (unknown) (unknown) Loc: [place] (units (unkno wn) date) unknown) (unknown) (no (unknown) (unknown) Ordering (units (unkno wn) date) Provider: unknown) Anne Talavera P.A-C (unknown) (no (unknown) (unknown) PROCEDURE: US (units ( unknown) date) PERIPH VENOUS unknown) LOW EXTREM LT (unknown) (no (unknown) (unknown) Patient: (units (unkno wn) date) Flavio Magallanesan Tam unknown) MR#: [id number] (unknown) (no (unknown) (unknown) Procedure: US (units ( unknown) date) periph venous unknown) low extrem lt (unknown) (no (unknown) (unknown) Real-time (units (unkn own) date) imaging, as well unknown) as color and pulse Doppler interrogation, were (unknown) (no (unknown) (unknown) TECHNIQUE: (units (unk nown) date) unknown) (unknown) (no (unknown) (unknown) Transcribed by: (units (unknown) date) FELISHA on unknown) 06/25/2022 at 15:38 (unknown) (no (unknown) (unknown) Ultrasound (units (unk nown) date) Report unknown) (unknown) (no (unknown) (unknown) compressible, (units ( unknown) date) and unknown) (unknown) (no (unknown) (unknown) extremity. (units (unk nown) date) unknown) (unknown) (no (unknown) (unknown) fossa. (units (unkno wn) date) unknown) (unknown) (no (unknown) (unknown) free of (units (unkno wn) date) intraluminal unknown) thrombus. Color and pulse Doppler demonstrate normal (unknown) (no (unknown) (unknown) intraluminal (units (u nknown) date) flow. There is unknown) normal augmentation response to distal compression (unknown) (no (unknown) (unknown) maneuver. (units (unkn own) date) unknown) (unknown) (no (unknown) (unknown) performed of (units (u nknown) date) unknown) (unknown) (no (unknown) (unknown) phasic (units (unkno wn) date) unknown) (unknown) (no (unknown) (unknown) the lower (units (unkn own) date) extremity deep unknown) veins from the inguinal ligament to the popliteal Social History date description facility 2022-06-19 00:00 Ex-smoker ([facility] Vital Signs date measurement value units 2022-06-19 00:00 BMI 19.3 kg/m2 2022-06-19 00:00 height_metric 170.18 cm 2022-06-19 00:00 height_standard 67 in 2022-06-19 00:00 weight_metric 55.79 kg 2022-06-19 00:00 weight_standard 123 lb 2022-06-20 00:00 BP_diastolic 52 mmHg 2022-06-20 00:00 BP_systolic 98 mmHg 2022-06-20 00:00 heart_rate 60 /min 2022-06-20 00:00 o2_saturation 96 % 2022-06-20 00:00 respiration_rate 16 /min 2022-06-20 00:00 temperature_metric 36.56 C 2022-06-20 00:00 temperature_standard 97.8 F
== END 2022-06-27 15:35 | disposition home or self-care (01) ==
LOC: ED 14:19
DX: S81.812A Laceration without foreign body, left lower leg, initial encounter (principal); X58.XXXA Exposure to other specified factors, initial encounter; Z23 Encounter for immunization; Z71.85 Encounter for immunization safety counseling
CPT/HCPCS: 12004; 90471; 99283

== ENCOUNTER 2022-07-11 15:17 | Emergency (ER) | payer MEDICARE ==
[2022-07-11 15:26] VITALS: BP 114/61
--- OUTSIDE RECORDS SUMMARY | 2022-07-11 15:43 | EXTERNAL MEDICAL SUMMARY RPT | Continuity of Care Document ---
:1940 Author Organization [facility] Address [address] [place] [address] Phone Care Team Providers Name Role Phone Unavailable Unavailable Unavailable Emerson Almaraz Unavailable Unavailable Allergies and Intolerances date description facility type (no date) Penicillins [facility] (unknown) (no date) Sulfa (Sulfonamide Antibiotics) [facility] (unknown) (no date) sulfamethoxazole [facility] (unknown) (no date) trimethoprim [facility] (unknown) Encounters No information. Functional Status No information. Immunizations No information. Medications date description facility 2022-06-11 00:00 Triamcinolone Acetonide [facility] 2022-06-11 00:00 Beclomethasone Dipropionate [facility] Problems date description facility 2022-05-11 12:33 Urinary tract infection, site not speci [facility] 2022-05-11 12:33 Hyperglycemia, unspecified [facility] 2022-05-11 12:33 Encounter for preprocedural [facility] examination 2022-05-11 12:33 Encounter for other preprocedural exami [facility] 2022-05-11 12:50 Urinary tract infection, site not [facility] 2022-05-11 12:50 Hyperglycemia, unspecified [facility] 2022-05-11 12:50 Encounter for preprocedural [facility] examination 2022-05-11 12:50 [facility] 08:49 Unilateral primary osteoarthritis, [facility] 2022-06-19 09:11 Unilateral primary osteoarthritis, [facility] 2022-06-20 08:00 Unilateral primary osteoarthritis, [facility] 2022-06-20 09:49 Unilateral primary osteoarthritis, [facility] 2022-06-20 10:53 Unilateral primary osteoarthritis, [facility] 2022-06-20 12:53 Unilateral primary osteoarthritis, [facility] 2022-06-20 12:56 Unilateral primary osteoarthritis, [facility] 2022-06-25 15:03 Pain in left lower leg [facility] Procedures date description facility 2022-06-19 00:00 XR fluoro, less than 60 minutes [facility] 2022-06-19 00:00 Total Hip Arthroplasty/Anterior Approac h (Left) [facility] 2022-06-19 00:00 Unilateral x-ray of hip, two views, wit h x-ray [facility] of pelvis 2022-06-19 00:00 X-ray of pelvis and unilateral hip, fou r views [facility] Results/Labs test date author facility value unit [...] (unknown) unknown) (unknown) (no date) (unknown) (unknown) [id number] (units (unkn own) unknown) (unknown) (no date) (unknown) (unknown) Age/Sex: 82 / (units (unknown) F unknown) (unknown) (no date) (unknown) (unknown) COVID-19 (units (unkn own) status: unknown) Negative (unknown) (no date) (unknown) (unknown) COVID-19 (units (unkn own) unknown) (unknown) (no date) (unknown) (unknown) Changes to (units (un known) H+P: No unknown) (unknown) (no date) (unknown) (unknown) : (units (unkn own) 1940 unknown) Acct:[id number] (unknown) (no date) (unknown) (unknown) Date of (units (unkn own) Service: unknown) 06/19/22 (unknown) (no date) (unknown) (unknown) History + (units (unk nown) Physical unknown) reviewed/Exam performed by Physician: Yes (unknown) (no date) (unknown) (unknown) Interval Note (units (unknown) unknown) (unknown) (no date) (unknown) (unknown) [facility] (units (unkn own) [facility] [address] [place] [address] (unknown) (no date) (unknown) (unknown) Patient: (units (unkn own) Manny Blake unknown) MR#: [id number] (unknown) (no date) (unknown) [...] known) date) 14:53. [place] [facility], CR, [id number] W PEL IF PERFORMED, (unknown) (no (unknown) (unknown) [address] [place] (units (unknown) date) unknown) (unknown) (no (unknown) (unknown) 14:53. (units (unkno wn) date) unknown) (unknown) (no (unknown) (unknown) [id number] (units (unkno wn) date) unknown) (unknown) (no (unknown) (unknown) 06/19/2022, (units (unk nown) date) 12:03. unknown) (unknown) (no (unknown) (unknown) Accession (units (unkn own) date) Number: unknown) [id number] (unknown) (no (unknown) (unknown) Accession (units (unkn own) date) Number: unknown) [id number] (unknown) (no (unknown) (unknown) Age/Sex: 82 / F (units (unknown) date) Date of Service: unknown) (unknown) (no (unknown) (unknown) [place] (units ( unknown) date) [address] unknown) (unknown) (no (unknown) (unknown) Approved by: [...] (unknown) (unknown) COMPARISON: (units (un known) date) [facility], unknown) CR, XR HIP W PEL IF DONE LT 2V, 06/19/2022, 13:14. (unknown) (no (unknown) (unknown) COMPARISON: (units (un known) date) [facility] [place] [place] unknown) [facility] [place], CR, XR PELVIS WITH LATERAL (unknown) (no (unknown) (unknown) : 1940 (units (unknown) date) Acct:[id number] unknown) (unknown) (no (unknown) (unknown) FINDINGS: (units [...] ANTERIOR HIP unknown) (unknown) (no (unknown) (unknown) [facility] (units (unknown) date) unknown) (unknown) (no (unknown) (unknown) Loc: 221-1 (units ( unknown) date) unknown) (unknown) (no (unknown) (unknown) [place] (units (unkno wn) date) Orthopedic unknown) [place], CR, XR PELVIS WITH LATERAL HIP LEFT, 02/28/2022, (unknown) (no (unknown) (unknown) Ordering (units (unkno wn) date) Provider: unknown) Zulema Grady MD (unknown) (no (unknown) (unknown) PROCEDURE: (units (unk nown) date) [id number] W PEL unknown) IF PERFORMED (unknown) (no (unknown) (unknown) PROCEDURE: XR (units ( unknown) date) HIP W PEL IF DONE unknown) LT 2V (unknown) (no (unknown) (unknown) Patient: (units (unkno wn) date) Manny Blake unknown) MR#: [id number] (unknown) (no (unknown) (unknown) Procedure: XR (units ( unknown) date) hip w pel if done unknown) LT 2V (unknown) (no (unknown) (unknown) Procedure: XR (units ( unknown) date) hip w pel if done unknown) LT min 4V (unknown) (no (unknown) (unknown) Signed (units (unkno wn) date) unknown) (unknown) (no (unknown) (unknown) [place] (units (unkno wn) date) unknown) (unknown) (no [...] unknown) mm screw (unknown) (no (unknown) (unknown) [address] (units (unkno wn) date) unknown) (unknown) (no [...] injured which was (unknown) (no (unknown) (unknown) Bottom Precipitator Operator: Sid Johnson (units (unknown) date) Miguel unknown) [...] (unknown) (unknown) : 1940 (units (unknown) date) Acct:[id number] unknown) (unknown) (no (unknown) (unknown) Date of [...] nknown) date) unknown) (unknown) (no (unknown) (unknown) [facility] (units (unknown) date) [address] unknown) [place] [address] (unknown) (no (unknown) (unknown) Left total hip [...] (unknown) Patient: (units (unkno wn) date) Manny Blake MR#: unknown) [id number] (unknown) (no (unknown) (unknown) [...] nknown) date) stability, no unknown) posterior impingement, caodaism of leg length and (unknown) (no (unknown) [...] (units (unknown) date) along the unknown) trochanter. Harwood pepper was placed in the femur. (unknown) [...] unknown) mm screw (unknown) (no (unknown) (unknown) [address] (units (unkno wn) date) unknown) (unknown) (no [...] known) date) unknown) (unknown) (no (unknown) (unknown) Bottom Precipitator Operator: Sid Johnson (units (unknown) date) Miguel unknown) (unknown) (no (unknown) (unknown) Asthma (units (unkno wn) date) unknown) (unknown) (no (unknown) (unknown) Attending (units (unkn own) date) Provider: unknown) Zulema Grady (unknown) (no (unknown) (unknown) RJ Calle, on (units ( unknown) date) 06/29/2022 @ 1:30 unknown) pm at [employer] office in [place].) (unknown) (no (unknown) (unknown) Blood Pressure (units [...] (unknown) (unknown) : 1940 (units (unknown) date) Acct:[id number] unknown) (unknown) (no (unknown) (unknown) Carolyn Paredes [...] Hip Replacement unknown) (unknown) (no (unknown) (unknown) [facility] (units (unknown) date) [address] unknown) [place] [address] (unknown) (no (unknown) (unknown) Latoya Calle PA-C [...] (unknown) Patient: (units (unkno wn) date) Manny Blake MR#: unknown) M0002 (unknown) (no (unknown) (unknown) [...] unknown) date) acetonide unknown) [Nasacort] 55 mcg Aerosol,[place] Result panel 92 (unknown) (no (unknown) (unknown) [...] on the left. (unknown) (no (unknown) (unknown) [id number] (units (unkno wn) date) unknown) (unknown) (no [...] known) date) unknown) (unknown) (no (unknown) (unknown) Bottom Precipitator Operator: Sid Johnson (units (unknown) date) Miguel unknown) (unknown) (no (unknown) (unknown) Asthma (units (unkno wn) date) unknown) (unknown) (no (unknown) (unknown) Attending (units (unkn own) date) Provider: unknown) Zulema Grady (unknown) (no (unknown) (unknown) RJ Calle, on (units ( unknown) date) 06/29/2022 @ 1:30 unknown) pm at [employer] office in [place].) (unknown) (no (unknown) (unknown) Blood Pressure (units [...] (unknown) (unknown) : 1940 (units (unknown) date) Acct:[id number] unknown) (unknown) (no (unknown) (unknown) Carolyn Paredes [...] Hip Replacement unknown) (unknown) (no (unknown) (unknown) [facility] (units (unknown) date) [address] unknown) [place] [address] (unknown) (no (unknown) (unknown) Latoya Calle PA-C [...] Griggs RN) (unknown) (no (unknown) (unknown) Ms Blake's (units (un known) date) hospital course was [...] (unknown) Patient: (units (unkno wn) date) Manny Blake MR#: unknown) M0002 (unknown) (no (unknown) (unknown) [...] unknown) date) acetonide unknown) [Nasacort] 55 mcg Aerosol,[place] Result panel 93 (unknown) (no (unknown) (unknown) (no value) (units (unk nown) date) unknown) (unknown) (no (unknown) (unknown) 06/25/22 (units (unkno wn) date) unknown) (unknown) (no (unknown) (unknown) [address]units (unkn own) [address]) [address] unknown) (unknown) (no (unknown) (unknown) [id number] (units (unkno wn) date) unknown) (unknown) (no (unknown) (unknown) Accession (units (unkn own) date) Number: unknown) [id number] (unknown) (no (unknown) (unknown) Age/Sex: 82 / F (units (unknown) date) Date of Service: unknown) (unknown) (no (unknown) (unknown) [place] (units ( unknown) date) [address] unknown) (unknown) (no (unknown) (unknown) Approved by: (units (u nknown) date) Power unknownFlower Jacob M.D. on 06/27/2022 at 16:22 (unknown) (no (unknown) (unknown) COMPARISON: (units (un known) date) None. unknown) (unknown) (no (unknown) (unknown) Caution: Report (units (unknown) date) not yet unknown) finalized and possibly incomplete! (unknown) (no (unknown) (unknown) : 1940 (units (unknown) date) Acct:[id number] unknown) (unknown) (no (unknown) (unknown) Dictated by: [...] date) PAIN unknown) (unknown) (no (unknown) (unknown) [facility] (units (unknown) date) unknown) (unknown) (no (unknown) (unknown) Loc: [place] (units (unkno wn) date) unknown) (unknown) (no (unknown) (unknown) Ordering (units (unkno wn) date) Provider: unknown) Anne Talavera P.A-C (unknown) (no (unknown) (unknown) PROCEDURE: US (units ( unknown) date) PERIPH VENOUS unknown) LOW EXTREM LT (unknown) (no (unknown) (unknown) Patient: (units (unkno wn) date) Manny Blake unknown) MR#: [id number] (unknown) (no (unknown) (unknown) Procedure: US (units ( unknown) date) periph venous unknown) low extrem lt (unknown) (no (unknown) (unknown) Real-time (units (unkn own) date) imaging, as well unknown) as color and pulse Doppler interrogation, were (unknown) (no (unknown) (unknown) Signed (units (unkno wn) date) unknown) (unknown) (no (unknown) (unknown) TECHNIQUE: (units (unk [...] History date description facility 2022-06-19 00:00 Ex-smoker ([facility] Vital Signs date measurement value units [...]
--- NOTE | 2022-07-11 15:51 | ED Physician Documentation ---
History of Present Illness - Stated complaint Stated Complaint: L LEG WOUND - Chief complaint Chief Complaint: Wound - Additonal information Additional information: 82-year-old female presents emergency department for evaluation of a left lower anterior leg wound. Patient underwent a hip surgery on 19 June. Following that surgery she had significant swelling of the entire leg. Reportedly was seen at [place] and had a negative ultrasound completed. Unfortunately the patient's walker fell and struck her leg on 27 June. She had developed a lower extremity cellulitis and had been on clindamycin at the time of the June 27 visit. The wound was addressed and the patient has subsequently been seen by her PCP who started her on Keflex for cellulitis. The patient reports that over the last few weeks the swelling in the leg has go tten markedly better as well as the redness. She is scheduled to see a wound clinic provider this upcoming Saturday but is concerned given the appearance of the wound that she is not doing enough for it. She has no fevers. Minimal pain. Review of Systems Skin: reports: Lesions PD PAST MEDICAL HISTORY - Past Medical History Cardiovascular: None Respiratory: Asthma Endocrine/Autoimmune: None GI: Colon polyps : None HEENT: None Psych: None Musculoskeletal: Rheumatoid arthritis Derm: None - Past Surgical History Past Surgical History: Yes General: Other Ortho: Knee replacement HEENT: Tonsil/Adenoidectomy - Present Medications Home Medications: Ambulatory Orders Medication Instructions Recorded Confirmed Beclomethasone 80 Mcg [Qvar 80] 1 puffs INH BID 09/27/14 10/17/16 Triamcinolone Acetonide [Nasacort] 10.8 ml NS BID 11/07/18 11/07/18 - Allergies Allergies/Adverse Reactions: Allergies Allergy/AdvReac Type Severity Reaction Status Date / Time penicillin * [penicillin] Allergy Unknown Verified 07/11/22 15:26 sulfamethoxazole Allergy Unknown Verified 07/11/22 15:26 [From Bactrim] trimethoprim [From Bactrim] Allergy Unknown Verified 07/11/22 15:26 - Social History Does the pt smoke?: No Smoking Status: Never smoker Does the pt drink ETOH?: Yes Does the pt have substance abuse?: No PD ED PE EXPANDED - Extremities Extremities: Left leg (Swollen left lower leg with hemosiderin staining. 2+ DP pulse. No posterior calf pain tenderness. There is an ulceration measuring 3 x 4 cm with black eschar.) Results - Vitals Vitals: Vital Signs - 24 hr 07/11/22 07/11/22 15:22 15:39 Temperature 37.2 C Heart Rate 84 Respiratory 16 16 Rate Blood Pressure 114/61 O2 Saturation 97 Oxygen O2 Source Room air PD Medical Decision Making - ED course Complexity details: d/w patient ED course: 82-year-old female presents emergency department for evaluation of a left lower anterior leg wound That began after she developed cellulitis and subsequently had her walker strike her leg creating a laceration. She was seen here on June 27 by my colleague and had the wound dressed. She is finished a course of clindamycin and is scheduled to finish a course of Keflex subsequently. She will not see wound providers for another 5 days. On appearance though lower anterior leg is swollen and erythematous but I am able to compare pictures today with those that are on her phone and the swelling and redness has improved since it initially began. Subsequently at this point we have a deep venous stasis ulcer of the lower anterior leg. I am making the recommendation to the patient that she significantly elevate her leg at night. I have placed a breathable Mepilex dressing on this lower leg. Clinically she appears to have a resolving and improving Cellulitis and as such given the lack of fevers and minimal pain I do not feel that an additional course of antibiotics or labs are warranted today. I discussed with patient and her that venous stasis ulcer such as this can take many months to heal. 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 Then you had an ultrasound that did not show a blood clot. However when the walker fell on your ankle you developed a sore or wound. You now have what is called a venous stasis ulcer likely due to swelling and trauma. These types of ulcers typically take months to heal. In comparison of the pictures that you show me on the phone the swelling and redness is starting to get better. Please complete the course of Keflex. I did place a temporary dressing on your lower leg called Mepilex. This is a breathable barrier. I would like you to leave this dressing in place and on Saturday change it after your shower. When the most important things you can do to help with the swelling and redness of this leg is to elevate it significantly especially at nighttime. Return to the ER if you develop any worsening swelling, redness or develop new fevers
== END 2022-07-11 16:13 | disposition home or self-care (01) ==
LOC: ED 15:17
DX: L97.229 Non-pressure chronic ulcer of left calf with unspecified severity (principal); W19.XXXA Unspecified fall, initial encounter
CPT/HCPCS: 99281; 99283

== ENCOUNTER 2022-12-18 11:23 | Outpatient (CLI) | payer MEDICARE ==
--- NOTE | 2022-12-19 13:23 | Mammography Report ---
BILATERAL DIGITAL SCREENING MAMMOGRAM 3D/2D: 12/18/2022 CLINICAL: Family history of breast cancer. Routine screening. Comparison is made to exams dated: 01/12/2022 mammogram, 01/09/2021 mammogram, 01/08/2020 mammogram, 12/31/2018 mammogram, 10/23/2017 mammogram, and 10/22/2016 mammogram - [facility]. Both breasts are heterogeneously dense, which may obscure small masses (category c / 51-75% glandular tissue). There are benign vascular calcifications in both breasts. There also are benign post operative findi ngs in the left breast. No significant masses, calcifications, or other findings are seen in either breast. There has been no significant interval change. IMPRESSION: BENIGN There is no mammographic evidence of malignancy. A 1 year screening mammogram is recommended. Based on the Tyrer Cuzick model (a risk assessment model) the patients lifetime risk is 0.7% and her 10 year risk is 0.0%. According to the ACR, ACS, and NCCN guidelines, an annual breast MRI exam ian g with mammogram is recommended if the patients lifetime risk is 20% or greater. This exam was interpreted at Station ID: [id number]. NOTE: For mammograms, a report in lay terms will be sent to the patient. Approximately 15% of breast malignancies will not be visualized mammographically. In the management of a palpable breast mass, a negative mammogram must not discourage biopsy of a clinically suspicious lesion. Electronically Signed By: Power [email or web address]:12/18/2022 15:06:50 letter sent: No_Letter ACR BI-RADS Category 2: Benign Finding(s) 3342F PARENCHYMAL PATTERN: (D) - The breast(s) demonstrate(s) heterogeneously dense fibroglandular parjosiah alcantara. BI-RADS CATEGORY: (2) - 2 Mammogram [id number] 1 year screening LATERALITY: (B)
== END 2022-12-18 11:24 | disposition home or self-care (01) ==
LOC: DI.N 11:23
PROVIDERS: ATTEND Internal Medicine
DX: Z12.31 Encounter for screening mammogram for malignant neoplasm of breast (principal); Z80.3 Family history of malignant neoplasm of breast

== ENCOUNTER 2023-06-18 21:20 | Outpatient (CLI) | payer MEDICARE | END 2023-06-18 23:59 | disposition critical access hospital (66) | LOC: EMS 21:20 | DX: R04.0 Epistaxis (principal) | CPT/HCPCS: A0425; A0429 ==

== ENCOUNTER 2023-06-18 21:22 | Emergency (ER) | payer MEDICARE ==
[2023-06-18 21:36] VITALS: BP 138/81; O2SAT 97
--- NOTE | 2023-06-18 21:40 | ED Physician Documentation ---
PD HPI HEENT - Stated complaint Stated Complaint: NOSE BLEED - Chief complaint Chief Complaint: Heent - History obtained from History obtained from: Patient, EMS - History of Present Illness Timing - onset: Today Timing - duration: Minutes Timing - details: Abrupt onset, Still present Location: Nose Improves: Other (pressure) Associated symptoms: Congestion, Rhinorrhea Similar symptoms before: Has not had sx before Recently seen: Not recently seen - Additional information Additional information: Previously well Manny Reynoso is an 83-year-old female who uses Nasacort on a regular basis for nasal allergies. Today she used her Nasacort and this incited excessive bleeding from the left nares. Bleeding appears to be stopped now. She reports that she has never had a bloody nose previously. Review of Systems Constitutional: denies: Fever Eyes: denies: Decreased vision Ears: denies: Ear pain Nose: reports: Rhinorrhea / runny nose, Congestion, Epistaxis Throat: denies: Sore throat Respiratory: denies: Cough GI: denies: Vomiting, Diarrhea PD PAST MEDICAL HISTORY - Past Medical History Cardiovascular: None Respiratory: Asthma Endocrine/Autoimmune: None GI: Colon polyps : None HEENT: None Psych: None Musculoskeletal: Rheumatoid arthritis Derm: None - Past Surgical History Past Surgical History: Yes General: Other Ortho: Knee replacement HEENT: Tonsil/Adenoidectomy - Present Medications Home Medications: Ambulatory Orders Medication Instructions Recorded Confirmed Beclomethasone 80 Mcg [Qvar 80] 1 puffs INH BID 09/27/14 06/18/23 Triamcinolone Acetonide [Nasacort] 10.8 ml NS BID 11/07/18 06/18/23 - Allergies Allergies/Adverse Reactions: Allergies Allergy/AdvReac Type Severity Reaction Status Date / Time penicillin * [penicillin] Allergy Unknown Verified 06/18/23 21:34 sulfamethoxazole Allergy Unknown Verified 06/18/23 21:34 [From Bactrim] trimethoprim [From Bactrim] Allergy Unknown Verified 06/18/23 21:34 - Social History Does the pt smoke?: No Smoking Status: Never smoker Does the pt drink ETOH?: Yes Does the pt have substance abuse?: No PD ED PE NORMAL - Vitals Vital signs reviewed: Yes (hypsertnsive mild ) - General General: Alert and oriented X 3, No acute distress, Well developed/nourished - HEENT HEENT: Atraumatic, PERRL, EOMI, Other (There is dried blood on the nose and cheeck on the right side. There is no active bleeding. There is evidence of recent bleeding with friable tissue on the anterior septum on the left side. ) - Neck Neck: Supple, no meningeal sign, No bony TTP - Respiratory Respiratory: No respiratory distress - Derm Derm: Normal color, Warm and dry, No rash - Extremities Extremities: No deformity, No edema - Neuro Neuro: Alert and oriented X 3, locks inspector 2-12 intact, No motor deficit, No sensory deficit, Normal speech Eye Opening: Spontaneous Motor: Obeys Commands Verbal: Oriented GCS Score: 15 - Psych Psych: Normal mood, Normal affect Results - Vitals Vitals: Vital Signs - 24 hr 06/18/23 21:30 Temperature 35.8 C L Heart Rate 76 Respiratory 16 Rate Blood Pressure 138/81 H O2 Saturation 97 Oxygen O2 Source Room air PD Medical Decision Making - ED course Complexity details: considered differential, d/w patient, d/w family ED course: 83-year-old Manny Reynoso has developed epistaxis which is resolved at the time of arrival to the emergency department I did have them instill Afrin which allowed the patient to cough up her clot. She has not had further bleeding I have identified the site of bleeding is anterior septum on the left side I have given the patient a clamp and instructed her to specifically where to place this clamp. She did have questions along with her about her use of the Nasacort. She has been using this for more than 20 years twice per day. I do not suspect this has anything to do with her epistaxis today. I suspect her allergies probably are contributing. I have encouraged the patient to use an antihistamine on a regular basis for improved control of her rhinitis symptoms. Departure - Departure Disposition: 01 Home, Self Care Clinical Impression: Epistaxis Condition: Stable Instructions: ED Nosebleed Follow-Up: Carolyn Suresh MD [Primary Care Provider] - Comments: Manny, today it looks like you have a nosebleed from the anterior septum. It looks like the bleeding was easily controlled and my recommendation if the bleeding happens again is to use the Afrin and the clap as discussed. I do not think you need to change your nasacort regimen. Use of an antihistamine such as Valentina or Zyrtec may help in the overall control of your symptoms. Forms: PCP List Discharge Date/Time: 06/18/23 22:35
[2023-06-18] MEDS: OXYMETAZOLINE HCL 100 SPRAYS BOTTLE NAS STA (21:53)
== END 2023-06-18 22:35 | disposition home or self-care (01) ==
LOC: EDUNIT# → ED 21:22
DX: R04.0 Epistaxis (principal); J45.909 Unspecified asthma, uncomplicated; M06.9 Rheumatoid arthritis, unspecified; Z86.010 Personal history of colon polyps
CPT/HCPCS: 99283; A9270

== ENCOUNTER 2023-08-29 16:00 | Outpatient (CLI) | payer MEDICARE ==
--- NOTE | 2023-08-29 18:40 | Ultrasound Report ---
PROCEDURE: Duplex Ext Veins Right INDICATIONS: RIGHT KNEE/LEG PAIN TECHNIQUE: Real-time imaging, as well as color and pulse Doppler interrogation, were performed of the lower extr emity deep veins from the inguinal ligament to the popliteal fossa. Attempted visualization of the ca lf veins was performed. COMPARISON: None. FINDINGS AND IMPRESSION: Nonocclusive thrombus is seen in the distal popliteal vein. Limited evaluation of the calf veins on t his study, possible additional areas of noncompressibility may represent additional thrombi. Negative for DVT in the thigh. Complex fluid collections around the right knee measuring up to 5.5 x 4.4 cm and 4.8 x 5.6 cm. Consid er MRI to further evaluate if there is further concern. Preliminary report by technologist to Dr. Suresh. Reviewed by: Jose M Walker MD on 08/29/2023 6:38 PM PDT Approved by: Jose M Walker MD on 08/29/2023 6:38 PM PDT Station ID: [id number]
== END 2023-08-29 16:01 | disposition home or self-care (01) ==
LOC: DI 16:00
PROVIDERS: ATTEND Internal Medicine
DX: I82.431 Acute embolism and thrombosis of right popliteal vein (principal); M25.461 Effusion, right knee

== ENCOUNTER 2023-10-08 14:02 | Outpatient (CLI) | payer MEDICARE ==
--- NOTE | 2023-10-08 21:51 | MRI Report ---
Knee RT WO CLINICAL INFORMATION: 83 years of age, Female, PAIN IN R KNEE. COMPARISON: None Technique: Multisequence, multiplanar MRI of the right knee was performed without intravenous contras t. FINDINGS: Status post total knee arthroplasty, creating artifacts and limits evaluation. MCL/LCL: Thinning of the proximal MCL, likely secondary to low-grade tear. The biceps femoris tendon is unremarkable. Mild sprain of the proximal fibular collateral ligament.The iliotibial band is intac t. The popliteus tendon is not well-visualized. Extensor mechanism: The quadricep tendon is unremarkable. Mild tendinosis of the proximal patellar te ndon. Patellofemoral joint: Alignment within the patellofemoral joint is normal . Low-grade tear of the lat eral patellofemoral ligament at the patellar insertion. Cartilage and bone: Marked marrow edema of the medial femoral condyle. No associated fracture line. Miscellaneous: Large knee effusion with extensive synovitis. No popliteal cyst. Normal muscle signal intensity and morphology. No vascular anomaly. Marked, diffuse subcutaneous edema of the knee. IMPRESSION: 1.Status post total knee arthroplasty, creating artifacts and limits evaluation. 2.Low-grade proximal MCL and the lateral patellofemoral ligament. 3.Marked marrow edema of the medial femoral condyle, nonspecific and may represent marrow contusion. No definitive fracture line. Recommend further evaluation with knee radiograph. 4.Large knee effusion with extensive synovitis. 5.Marked diffuse subcutaneous edema of the knee. Reviewed by: Veronica Weir MD on 10/08/2023 9:49 PM PDT Approved by: Veronica Weir MD on 10/08/2023 9:49 PM PDT Station ID: [id number]
== END 2023-10-08 14:03 | disposition home or self-care (01) ==
LOC: DI 14:02
PROVIDERS: ATTEND Internal Medicine
DX: S83.421A Sprain of lateral collateral ligament of right knee, initial encounter (principal); M25.461 Effusion, right knee; R60.0 Localized edema

== ENCOUNTER 2023-10-18 12:07 | Outpatient (CLI) | payer MEDICARE ==
[2023-10-18 12:22] LABS: BASOPHILS % (AUTO) 0.3 %; EOSINOPHILS # (AUTO) 0.1 10^3/uL (0.0-0.7); EOSINOPHILS % (AUTO) 1.5 %; HCT - HEMATOCRIT 38.2 % (37.0-47.0); HGB - HEMOGLOBIN 11.7 g/dL (12.0-16.0); LYMPHOCYTES # (AUTO) 1.3 10^3/uL (1.5-3.5); LYMPHOCYTES % (AUTO) 19.3 %; MEAN CORPUSCULAR HEMOGLOBIN 28.8 pg (27.0-31.0); MEAN CORPUSCULAR HGB CONC 30.6 g/dL (32.0-36.0); MEAN CORPUSCULAR VOLUME 94.1 fL (81.0-99.0); MEAN PLATELET VOLUME 9.9 fL (7.9-10.8); MONOCYTES # (AUTO) 0.8 10^3/uL (0.0-1.0); MONOCYTES % (AUTO) 11.3 %; NEUTROPHILS # (AUTO) 4.6 10^3/uL (1.5-6.6); NEUTROPHILS % (AUTO) 67.5 %; PLT - PLATELET COUNT 297 10^3/uL (130-450); RED BLOOD COUNT 4.06 10^6/uL (4.20-5.40); RED CELL DISTRIBUTION WIDTH 13.1 % (12.0-15.0); WHITE BLOOD COUNT 6.8 x10^3/uL (4.8-10.8)
== END 2023-10-18 12:08 | disposition home or self-care (01) ==
LOC: LAB 12:07
PROVIDERS: ATTEND Orthopaedic Surgery
DX: Z96.651 Presence of right artificial knee joint (principal)
CPT/HCPCS: 36415; 85025; 85651; 86140

== ENCOUNTER 2023-11-29 13:54 | Outpatient (CLI) | payer MEDICARE ==
--- NOTE | 2023-12-02 09:00 | Ultrasound Report ---
PROCEDURE: Duplex Ext Veins Right INDICATIONS: POPLITEAL VEIN THROMNOSIS TECHNIQUE: Real-time imaging, as well as color and pulse Doppler interrogation, were performed of the lower extr emity deep veins from the inguinal ligament to the popliteal fossa. Attempted visualization of the ca lf veins was performed. COMPARISON: 08/29/2023 FINDINGS: Persistent filling defect within the distal popliteal vein. The remaining deep veins are no rmally compressible, and free of intraluminal thrombus. Color and pulse Doppler demonstrate normal p hasic intraluminal flow. There is normal augmentation response to distal compression maneuver. Stab le fluid collection posterior to the knee measuring 3.7 x 2.0 x 5.5 cm, with lacy internal echogenici ty. IMPRESSION: Persistent filling defect within the distal popliteal vein. This probably represents chronic posttrau matic change at this time point. 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 Reviewed by: Max Rogers MD on 12/02/2023 8:59 AM PDT Approved by: Max Rogers MD on 12/02/2023 8:59 AM PDT Station ID: [id number]
== END 2023-11-29 13:55 | disposition home or self-care (01) ==
LOC: DI 13:54
PROVIDERS: ATTEND Nurse Practitioner Family
DX: I80.221 Phlebitis and thrombophlebitis of right popliteal vein (principal)